=== PATIENT | female | born 1985 | race African-American/Black ===

== ENCOUNTER 2017-10-10 23:59 | Emergency (ER) | payer SELFPAY ==
[2017-10-11 00:33] LABS: ADD MAN DIFF? NO
[2017-10-11 00:34] LABS: BASO % 0 % (0-3); EOS # 0.2 x10^3/uL (0.0-0.7); EOS % 2 % (0-3); HEMATOCRIT 42.7 % (36.0-47.0); HEMOGLOBIN 14.2 g/dL (12.0-15.5); LYMPH # 1.6 x10^3/uL (1.0-4.8); LYMPH % 15 % (24-48); MEAN CORPUSCULAR HEMOGLOBIN 27 pg (25-35); MEAN CORPUSCULAR HGB CONC 33 g/dL (31-37); MEAN CORPUSCULAR VOLUME 82 fL (79-100); MONO # 0.6 x10^3/uL (0.0-1.1); MONO % 5 % (0-9); NEUT # 7.9 x10^3uL (1.8-7.7); NEUT % 77 % (31-73); PLATELET COUNT 345 x10^3/uL (140-400); RED BLOOD COUNT 5.19 x10^6/uL (3.50-5.40); RED CELL DISTRIBUTION WIDTH 12.9 % (11.5-14.5); WHITE BLOOD COUNT 10.2 x10^3/uL (4.0-11.0)
[2017-10-11] MEDS: KETOROLAC 30 MG/ML INJ. IV (00:35)
[2017-10-11] MEDS: ONDANSETRON PF 4 MG/2 ML VIAL. IV (00:35)
[2017-10-11 00:42] LABS: ANION GAP 13 (6-14); BLOOD UREA NITROGEN 16 mg/dL (7-20); BUN/CREATININE RATIO 13 (6-20); CALCIUM 9.5 mg/dL (8.5-10.1); CARBON DIOXIDE 22 mmol/L (21-32); CHLORIDE 109 mmol/L (98-107); CREATININE 1.2 mg/dL (0.6-1.0); GFR 51.4; GLUCOSE 164 mg/dL (70-99); POTASSIUM 4.3 mmol/L (3.5-5.1); SODIUM 144 mmol/L (136-145)
[2017-10-11 00:48] LABS: ALBUMIN 4.2 g/dL (3.4-5.0); ALBUMIN/GLOBULIN RATIO 1.1 (1.0-1.7); ALK PHOS 91 U/L (46-116); ALT (SGPT) 22 U/L (14-59); AST (SGOT) 10 U/L (15-37); TOTAL BILIRUBIN 0.3 mg/dL (0.2-1.0); TOTAL PROTEIN 8.1 g/dL (6.4-8.2)
[2017-10-11 01:14] LABS: URINE HCG POC HCG NEGATIVE (Negative)
[2017-10-11 01:16] LABS: BILIRUBIN,URINE NEGATIVE (NEG); CLARITY,URINE CLEAR; COLOR,URINE YELLOW; GLUCOSE,URINE NEGATIVE (NEG); NITRITE,URINE NEGATIVE (NEG); PROTEIN,URINE NEGATIVE (NEG-TRACE); UROBILINOGEN,URINE 0.2 mg/dL (0.2 mg/dL)
[2017-10-11 01:20] LABS: NEG OBC UR NEG; POS OBC UR POS; U PREG PATIENT NEGATIVE (NEG)
[2017-10-11 01:22] LABS: BACTERIA,URINE 0 /HPF (0-FEW); SQUAMOUS EPITHELIAL CELL,UR FEW /LPF
[2017-10-11 01:23] LABS: AMORPHOUS SEDIMENT,UR PRESENT /HPF
[2017-10-11] MEDS ORDERED: MORPHINE SULFATE 4 MG/ML DISP.SYRIN. (02:28)
[2017-10-11] MEDS: IV NORMAL SALINE 1000ML BAG 1,000 ML IV (02:30)
[2017-10-11] MEDS: MORPHINE SULFATE 4 MG/ML DISP.SYRIN. IV (02:33)
[2017-10-11] MEDS: TAMSULOSIN 0.4 MG CAP.ER.24H. PO (03:22)
== END 2017-10-11 03:29 | disposition home or self-care (01) ==
LOC: ER 23:59
DX: R10.12 Left upper quadrant pain (principal); R10.32 Left lower quadrant pain; R11.2 Nausea with vomiting, unspecified
CPT/HCPCS: 36415; 74176; 80053; 81001; 81025; 85025; 87086; 96361; 96374; 96375; 99285-25; J1885; J2270; J2405; J7030

== ENCOUNTER 2018-01-01 09:56 | Emergency (ER) | payer SELFPAY ==
[~2018-01-01] VITALS: Ht 172.7 cm; Wt 103.0 kg
[~2018-01-01 09:56] MED LIST: HYDR-971 PO; ONDA4TAB7 PO; TAMS0.4C97 PO
[2018-01-01] MEDS ORDERED: ALBUTEROL SULFATE 2.5 MG/3 ML NEBU. NEB ONE (10:15)
[2018-01-01] MEDS ORDERED: predniSONE 10 MG TABLET PO ONE (10:15)
--- NOTE | 2018-01-01 10:18 | PHYS DOC ---
Past Medical History Past Medical History: Asthma Past Surgical History: Other Additional Past Surgical Histo: UMBILICAL HERNIA Alcohol Use: None Drug Use: Marijuana Adult General Chief Complaint Chief Complaint: Congestion HPI HPI 32-year-old female with history of asthma and kidney stones presenting the emergency department with an upper rest for a cough over the past 2-3 days. She reports having a fever at home as well. She reports yellow and white productive cough. She denies any pain feels mildly tired. He denies abdominal pain. She denies neck stiffness confusion cyanosis. She has had mild shortness of breath. Review of systems is negative for chest pain abdominal pain neck stiffness, meningismus or nuchal rigidity. All other review of systems is negative unless otherwise noted in history of present illness. ED course: 32-year-old female presenting to the emergency department with cough and wheezing with a history of asthma. On arrival she is tachycardic Be secondary to hypovolemia, could be secondary to multiple albuterol doses use at home. Otherwise saturating well on room air. She has wheezing bilaterally with rhonchi. Abdomen is soft and nontender. No nuchal rigidity. Negative Brudzinski' s sign. Negative Kernig sign. The remainder the exam is unremarkable. Patient was given IV fluids nebulizer and oral corticosteroids. Basic blood work and chest x-ray obtained. Blood work unremarkable. Negative test. Chest x- ray shows no signs of infiltrate. On reexamination we ordered a second nebulizer because she still was having wheezing. There are examination she continues to have wheezing. I recommend the patient be admitted for nebulizers and monitoring however the patient declines and would like to sign out AMA. I informed the patient of their right to a medical screening exam and any treatment and/or stabilization that may be necessary regardless of their ability to pay. The patient appears to have intact insight, judgment, and reason. In my opinion, this patient has the capacity to make decisions. The patient presented with asthma and I am concerned that this could worsen and cause respiratory distress. My initial plan prior to the pt expressing the desire to leave was admission to the hospital for monitoring and nebulizers. I explained the risk of and disability to the patient in plain language which they were able to demonstrate in their own words verbal understanding. I discussed the limitations of the workup thus far included but were not limited to worsening condition. The pt has verbalized understanding of my concerns. I offered alternatives to the therapy including oral steroids and antibiotics with inhaler. I recommended the pt follow up with the ED tomorrow. I explained that at any time if the patient changed their mind, we are always open and would be happy to have them back. The patient refused further care and then left against medical advice. Review of Systems Review of Systems SEE ABOVE. Current Medications Current Medications Current Medications Medications (Trade) Dose Ordered Sig/Jeramie Start Time Stop Time Status Last Admin Dose Admin Albuterol Sulfate (Ventolin Neb Soln) 2.5 mg 1X ONCE 01/01/18 10:15 01/01/18 10:16 DC 01/01/18 10:25 2.5 MG Albuterol/ Ipratropium (Duoneb) 3 ml 1X ONCE 01/01/18 11:45 01/01/18 11:46 DC 01/01/18 11:40 3 ML Prednisone (Prednisone) 50 mg 1X ONCE 01/01/18 10:15 01/01/18 10:16 DC 01/01/18 10:26 50 MG Sodium Chloride 1,000 ml @ 1,000 mls/hr 1X ONCE 01/01/18 10:30 01/01/18 11:29 DC 01/01/18 10:29 1,000 MLS/HR Allergies Allergies Allergies Coded Allergies Type Severity Reaction Last Updated Verified No Known Drug Allergies 10/11/17 No Physical Exam Physical Exam SEE ABOVE Constitutional: Well developed, well nourished, no acute distress, non-toxic appearance. [] HENT: Normocephalic, atraumatic, bilateral external ears normal, oropharynx moist, no oral exudates, nose normal. [] Eyes: PERRLA, EOMI, conjunctiva normal, no discharge. [] Neck: Normal range of motion, no tenderness, supple, no stridor. [] Cardiovascular:tachy Heart rate w regular rhythm, no murmur [] Lungs & Thorax: as above Abdomen: Bowel sounds normal, soft, no tenderness, no masses, no pulsatile masses. [] Skin: Warm, dry, no erythema, no rash. [] Back: No tenderness, no CVA tenderness. [] Extremities: No tenderness, no cyanosis, no clubbing, ROM intact, no edema. [] Neurologic: Alert and oriented X 3, normal motor function, normal sensory function, no focal deficits noted. [] Psychologic: Affect normal, judgement normal, mood normal. [] Current Patient Data Vital Signs Vital Signs Date Time Temp Pulse Resp B/P (MAP) Pulse Ox O2 Delivery O2 Flow Rate FiO2 01/01/18 11:41 97 Room Air 01/01/18 10:10 99.6 132 26 177/95 (122) 99.6 Lab Values Laboratory Tests Test 01/01/18 10:15 White Blood Count 5.8 x10^3/uL (4.0-11.0) Red Blood Count 4.73 x10^6/uL (3.50-5.40) Hemoglobin 13.2 g/dL (12.0-15.5) Hematocrit 39.1 % (36.0-47.0) Mean Corpuscular Volume 83 fL (79-100) Mean Corpuscular Hemoglobin 28 pg (25-35) Mean Corpuscular Hemoglobin Concent 34 g/dL (31-37) Red Cell Distribution Width 13.7 % (11.5-14.5) Platelet Count 320 x10^3/uL (140-400) Neutrophils (%) (Auto) 48 % (31-73) Lymphocytes (%) (Auto) 28 % (24-48) Monocytes (%) (Auto) 12 % (0-9) H Eosinophils (%) (Auto) 11 % (0-3) H Basophils (%) (Auto) 1 % (0-3) Neutrophils # (Auto) 2.8 x10^3uL (1.8-7.7) Lymphocytes # (Auto) 1.7 x10^3/uL (1.0-4.8) Monocytes # (Auto) 0.7 x10^3/uL (0.0-1.1) Eosinophils # (Auto) 0.7 x10^3/uL (0.0-0.7) Basophils # (Auto) 0.0 x10^3/uL (0.0-0.2) Sodium Level 138 mmol/L (136-145) Potassium Level 4.1 mmol/L (3.5-5.1) Chloride Level 106 mmol/L (98-107) Carbon Dioxide Level 23 mmol/L (21-32) Anion Gap 9 (6-14) Blood Urea Nitrogen 6 mg/dL (7-20) L Creatinine 0.9 mg/dL (0.6-1.0) Estimated GFR (Cockcroft-Gault) 86.7 Glucose Level 101 mg/dL (70-99) H Calcium Level 9.8 mg/dL (8.5-10.1) Serum Test, Qualitative Negative (NEG) Laboratory Tests 01/01/18 10:15 Laboratory Tests 01/01/18 10:15 EKG EKG [] Radiology/Procedures Radiology/Procedures [] Course & Med Decision Making Course & Med Decision Making Pertinent Labs and Imaging studies reviewed. (See chart for details) [] Dragon Disclaimer Dragon Disclaimer This electronic medical record was generated, in whole or in part, using a voice recognition dictation system. Departure Departure Impression: Primary Impression: Acute asthma exacerbation Disposition: AGAINST MEDICAL ADVICE Condition: GUARDED Referrals: NO PCP (PCP) AMILCAR ST MD Patient Instructions: Asthma Attacks, Prevention, Asthma, Adult Additional Instructions: Thank you for allowing us to participate in your care today. Return to the emergency department you have any new or worsening symptoms, or if you are concerned for any reason. Return to emergency department if you have any new or concerning symptoms including but not limited to fever, chills, nausea, vomiting, intractable pain, any new rashes, chest pain, shortness of air , uncontrolled bleeding, difficulty breathing, and/or vision loss. Follow up with your primary care physician within 3 days. Call your Primary Doctor tomorrow and inform them of your visit today. If you do not have a primary care provider we are happy to provide you with a list of our primary care providers contact information. This condition should be evaluated by your primary care physician and any recommended consulting services for continued management within 2-3 days after discharge. If at any time, you are having difficulty getting into your primary care doctor or a specialist, return to the emergency department. Scripts Doxycycline Monohydrate (DOXYCYCLINE MONOHYDRATE) 100 Mg Capsule 1 CAP PO BID, #14 CAP Prov: JESSE ARMENDARIZ MD 01/01/18 Albuterol Sulfate (PROAIR HFA INHALER) 8.5 Gm Hfa.aer.ad 1 PUFF INH PRN Q6HRS PRN for SHORTNESS OF BREATH, #1 INHALER 0 Refills Prov: JESSE ARMENDARIZ MD 01/01/18 Prednisone (PREDNISONE) 50 Mg Tablet 1 TAB PO DAILY, #4 TAB Prov: JESSE ARMENDARIZ MD 01/01/18 JESSE ARMENDARIZ MD Jan 01, 2018 10:18
[2018-01-01] MEDS ORDERED: IV NORMAL SALINE 1000ML BAG 1,000 ML IV ONE (10:30)
[2018-01-01 10:31] LABS: BASO % 1 % (0-3); EOS # 0.7 x10^3/uL (0.0-0.7); EOS % 11 % (0-3); HEMATOCRIT 39.1 % (36.0-47.0); HEMOGLOBIN 13.2 g/dL (12.0-15.5); LYMPH # 1.7 x10^3/uL (1.0-4.8); LYMPH % 28 % (24-48); MEAN CORPUSCULAR HEMOGLOBIN 28 pg (25-35); MEAN CORPUSCULAR HGB CONC 34 g/dL (31-37); MEAN CORPUSCULAR VOLUME 83 fL (79-100); MONO # 0.7 x10^3/uL (0.0-1.1); MONO % 12 % (0-9); NEUT # 2.8 x10^3uL (1.8-7.7); NEUT % 48 % (31-73); PLATELET COUNT 320 x10^3/uL (140-400); RED BLOOD COUNT 4.73 x10^6/uL (3.50-5.40); RED CELL DISTRIBUTION WIDTH 13.7 % (11.5-14.5); WHITE BLOOD COUNT 5.8 x10^3/uL (4.0-11.0)
[2018-01-01] MEDS ORDERED: IPRATRPIUM/ALBUTEROL 0.5/2.5MG 3 ML NEBU. NEB ONE ×2 (10:45→11:45)
[2018-01-01 10:56] LABS: CALCIUM 9.8 mg/dL (8.5-10.1); CREATININE 0.9 mg/dL (0.6-1.0); GFR 86.7; POTASSIUM 4.1 mmol/L (3.5-5.1); PREG TEST PT QUAL NEGATIVE (NEG)
--- NOTE | 2018-01-01 11:19 | RAD ---
CHEST PA LATERAL History: cough x 5 days Comparison: None. Findings: The cardiomediastinal silhouette is normal. Pulmonary vasculature is normal. The lungs are clear. No pleural effusion or pneumothorax is seen. There is no acute bone abnormality. IMPRESSION: No acute cardiopulmonary process. Electronically signed by: Darien Knox MD (01/01/2018 11:15 AM) [id number]
[2018-01-01 12:00] VITALS: BP 174/79
[2018-01-01] MEDS ORDERED: DOXY100C14 PO (12:03)
[2018-01-01] MEDS ORDERED: PROAIR HFA8.5 GM INH (12:03)
[2018-01-01] MEDS ORDERED: PRED50TA PO (12:03)
== END 2018-01-01 12:12 | disposition left against medical advice (07) ==
LOC: ER 09:56
DX: J45.901 Unspecified asthma with (acute) exacerbation (principal); Z87.442 Personal history of urinary calculi
CPT/HCPCS: 36415; 71046; 80048; 84703; 85025; 94640; 99285; J7030; J7512; J7613; J7620

== ENCOUNTER 2018-07-23 10:08 | Emergency (ER) | payer SELFPAY ==
[~2018-07-23] VITALS: Ht 172.7 cm; Wt 97.1 kg
[~2018-07-23 10:08] MED LIST changes: +ALBU2.5V8 INH; +DOXY100C14 PO; +HYDR-3164 PO; -HYDR-971 PO; +PRED50TA PO
--- NOTE | 2018-07-23 10:24 | PHYS DOC ---
Past Medical History Past Medical History: Asthma, Kidney Stone Past Surgical History: Other Additional Past Surgical Histo: UMBILICAL HERNIA Alcohol Use: None Drug Use: Marijuana Adult General Chief Complaint Chief Complaint: ASTHMA HPI HPI Patient is a 33 year old female with history of asthma who presents to the ED complaining of cough, wheezing and shortness of breath that began last night. Patient states she has tried using her inhaler with no relief. Patient denies any fever. Review of Systems Review of Systems Constitutional: Denies fever or chills [] Eyes: Denies change in visual acuity, redness, or eye pain [] HENT: Denies nasal congestion or sore throat [] Respiratory:Reports cough, wheezing and shortness of breath [] Cardiovascular: No additional information not addressed in HPI [] GI: Denies abdominal pain, nausea, vomiting, bloody stools or diarrhea [] : Denies dysuria or hematuria [] Musculoskeletal: Denies back pain or joint pain [] Integument: Denies rash or skin lesions [] Neurologic: Denies headache, focal weakness or sensory changes [] All other systems were reviewed and found to be within normal limits, except as documented in this note. Current Medications Current Medications Current Medications Medications (Trade) Dose Ordered Sig/Jeramie Start Time Stop Time Status Last Admin Dose Admin Albuterol/ Ipratropium (Duoneb) 3 ml 1X ONCE 07/23/18 10:30 07/23/18 10:31 DC 07/23/18 10:30 3 ML Methylprednisolone Sodium Succinate (SOLU-Medrol 125MG VIAL) 125 mg 1X ONCE 07/23/18 10:30 07/23/18 10:31 DC 07/23/18 10:55 125 MG Ondansetron HCl (Zofran) 4 mg STK-MED ONCE 07/23/18 10:58 07/23/18 10:59 DC Allergies Allergies Allergies Coded Allergies Type Severity Reaction Last Updated Verified No Known Drug Allergies 10/11/17 No Physical Exam Physical Exam Constitutional: Well developed, well nourished, no acute distress, non-toxic appearance. [] HENT: Normocephalic, atraumatic, bilateral external ears normal, oropharynx moist, no oral exudates, nose normal. [] Eyes: PERRLA, EOMI, conjunctiva normal, no discharge. [] Neck: Normal range of motion, no tenderness, supple, no stridor. [] Cardiovascular:Heart rate regular rhythm, no murmur [] Lungs & Thorax: Patient is short of air on arrival to the ED. Wheezing noted throughout. Abdomen: Bowel sounds normal, soft, no tenderness, no masses, no pulsatile masses. [] Skin: Warm, dry, no erythema, no rash. [] Back: No tenderness, no CVA tenderness. [] Extremities: No tenderness, no cyanosis, no clubbing, ROM intact, no edema. [] Neurologic: Alert and oriented X 3, normal motor function, normal sensory function, no focal deficits noted. [] Psychologic: Affect normal, judgement normal, mood normal. [] Current Patient Data Vital Signs Vital Signs Date Time Temp Pulse Resp B/P (MAP) Pulse Ox O2 Delivery O2 Flow Rate FiO2 07/23/18 10:45 91 Room Air 07/23/18 10:29 98.1 122 22 135/78 (97) 98.1 Lab Values Laboratory Tests Test 07/23/18 10:48 POC Urine HCG, Qualitative Hcg negative (Negative) EKG EKG [] Radiology/Procedures Radiology/Procedures [] Course & Med Decision Making Course & Med Decision Making Pertinent Labs and Imaging studies reviewed. (See chart for details) This is a 33-year-old female patient presenting to the ED today with shortness of breath, cough, wheezing since last night. Patient has history of asthma. He has tried using her inhaler with no relief. DuoNeb treatment and Solu-Medrol ordered given Chest x-ray interpreted by radiologist is negative for any acute findings. 11:59 . Related patient, she states she is feeling better. Her lungs have cleared up, breathing is back to baseline. O2 sats have remained above 96%. Patient was discharged with prescription for albuterol inhaler and prednisone. Follow-up with her PCP next week. Dragon Disclaimer Dragon Disclaimer This electronic medical record was generated, in whole or in part, using a voice recognition dictation system. Departure Departure Impression: Primary Impression: Asthma exacerbation Disposition: HOME, SELF-CARE Condition: STABLE Referrals: NO PCP (PCP) follow up with your doctor next week Patient Instructions: Asthma, Adult Additional Instructions: You were evaluated for asthma exacerbation, take the prescribed medications as ordered. Follow-up with your doctor in 2 weeks. Come back to the ED at any point symptoms worsen. Scripts Albuterol Sulfate (Proair Respiclick) 90 Mcg Aer.pow.ba 1 PUFF IH PRN Q6HRS PRN for SHORTNESS OF BREATH, #1 INHALER Prov: BRIAN WALL APRN 07/23/18 Albuterol Sulfate (VENTOLIN HFA INHALER) 18 Gm Hfa.aer.ad 2 PUFF INH Q4HRS for FOR ASTHMA, #1 INHALER 0 Refills Prov: BRIAN WALL APRN 07/23/18 Prednisone (PREDNISONE) 50 Mg Tablet 1 TAB PO DAILY, #5 TAB Prov: BRIAN WALL APRN 07/23/18 Problem Qualifiers Primary Impression: Asthma exacerbation Asthma severity: mild Asthma persistence: intermittent Qualified Codes: J45.21 - Mild intermittent asthma with (acute) exacerbation BRIAN WALL APRN Jul 23, 2018 10:24
[2018-07-23] MEDS ORDERED: methylPREDNISolone SOD SUCC PF 125 MG/2 ML VIAL. IM ONE (10:30)
[2018-07-23] MEDS ORDERED: IPRATRPIUM/ALBUTEROL 0.5/2.5MG 3 ML NEBU. NEB ONE (10:30)
[2018-07-23] MEDS ORDERED: ONDANSETRON PF 4 MG/2 ML VIAL. ONE (10:58)
--- NOTE | 2018-07-23 11:31 | RAD ---
Chest, 2 views, 07/23/2018: HISTORY: Shortness of breath, asthma Comparison is made to a study from 01/01/2018. The heart size is normal. No pulmonary consolidation is seen. There is no evidence of pleural fluid. IMPRESSION: No acute cardiopulmonary abnormality is detected. Electronically signed by: Royal Donahue MD (07/23/2018 11:28 AM) [facility]
[2018-07-23] MEDS ORDERED: VENTOLIN HFA18 GM INH (12:05)
[2018-07-23] MEDS ORDERED: PRED50TA PO (12:05)
[2018-07-23 12:15] VITALS: BP 133/72
[2018-07-23] MEDS ORDERED: PROAIR RESPICL90 MCG IH (12:20)
== END 2018-07-23 12:24 | disposition home or self-care (01) ==
LOC: ER 10:08
DX: J45.21 Mild intermittent asthma with (acute) exacerbation (principal); J45.909 Unspecified asthma, uncomplicated; Z87.442 Personal history of urinary calculi
CPT/HCPCS: 71046; 81025; 94640; 96372; 99284; J2930; J7620

== ENCOUNTER 2018-09-21 11:34 | Emergency (ER) | payer SELFPAY ==
[~2018-09-21] VITALS: Ht 172.7 cm; Wt 94.3 kg
[~2018-09-21 11:34] MED LIST changes: +PROAIR RESPICL90 MCG IH; +VENTOLIN HFA18 GM INH
[2018-09-21 11:40] VITALS: BP 144/83
[2018-09-21] MEDS ORDERED: ALBUTEROL SULFATE 2.5 MG/3 ML NEBU. NEB ONE (11:45)
[2018-09-21] MEDS ORDERED: predniSONE 10 MG TABLET PO ONE (11:45)
--- NOTE | 2018-09-21 12:09 | PHYS DOC ---
Past Medical History Past Medical History: Asthma, Kidney Stone Past Surgical History: Other Additional Past Surgical Histo: UMBILICAL HERNIA Alcohol Use: None Drug Use: Marijuana Social History Narrative: pt denies 09/21/18 Adult General Chief Complaint Chief Complaint: ASTHMA HPI HPI 33-year-old female presents to ER with complaints of asthma exacerbation. Patient states she has had gradual worsening over the past 3-4 days. Patient reports she has had nonproductive cough and increased shortness of air this morning. Patient reports this feels similar to previous asthma exacerbations. She reports her son currently has croup and cold-like illness. Patient denies fever, chest pain, or productive cough. Pt denies daily smoking. Review of Systems Review of Systems Constitutional: Denies fever or chills [] Eyes: Denies change in visual acuity, redness, or eye pain [] HENT: Denies nasal congestion or sore throat [] Respiratory: Reports cough/SOA Cardiovascular: No additional information not addressed in HPI [] GI: Denies abdominal pain, nausea, vomiting, bloody stools or diarrhea [] : Denies dysuria or hematuria [] Musculoskeletal: Denies back/neck pain or joint pain [] Integument: Denies rash or skin lesions [] Neurologic: Denies headache, focal weakness or sensory changes. Denies dizziness All other systems were reviewed and found to be within normal limits, except as documented in this note. Current Medications Current Medications Current Medications Medications (Trade) Dose Ordered Sig/Jeramie Start Time Stop Time Status Last Admin Dose Admin Albuterol Sulfate (Ventolin Neb Soln) 2.5 mg 1X ONCE 09/21/18 11:45 09/21/18 11:46 DC 09/21/18 11:59 2.5 MG Albuterol/ Ipratropium (Duoneb) 3 ml 1X ONCE 09/21/18 12:30 09/21/18 12:31 DC 09/21/18 13:12 3 ML Prednisone (Prednisone) 50 mg 1X ONCE 09/21/18 11:45 09/21/18 11:46 DC 09/21/18 11:55 50 MG Allergies Allergies Allergies Coded Allergies Type Severity Reaction Last Updated Verified No Known Drug Allergies 10/11/17 No Physical Exam Physical Exam Constitutional: Well developed, well nourished, moderate distress, non-toxic appearance. [] HENT: Normocephalic, atraumatic, bilateral external ears normal, oropharynx moist, no oral exudates, nose normal. [] Eyes: Pupils equal, conjunctiva normal, no discharge. [] Neck: Normal range of motion, no tenderness, supple, no stridor/gross adenopathy Cardiovascular: Heart rate regular rhythm, no murmur [] Lungs & Thorax: Decreased air movement throughout all lung moise, expiratory wheeze right upper lobe, decreased air movement in bases. Respirations are labored/equal. Patient is able to speak in full sentences Skin: Warm, dry, no erythema, no rash. [] Back: No tenderness, no CVA tenderness. [] Extremities: No tenderness, no cyanosis, no clubbing, ROM intact, no edema. [] Neurologic: Alert and oriented X 3, normal motor function, normal sensory function, no focal deficits noted. [] Psychologic: Affect normal, judgement normal, mood normal. [] Current Patient Data Vital Signs Vital Signs Date Time Temp Pulse Resp B/P (MAP) Pulse Ox O2 Delivery O2 Flow Rate FiO2 09/21/18 13:12 Room Air 09/21/18 11:59 100 09/21/18 11:40 98.6 122 24 144/83 (103) 98.6 EKG EKG [] Radiology/Procedures Radiology/Procedures PROCEDURE: CHEST PA & LATERAL Chest, 2 views, 09/21/2018: HISTORY: Cough, shortness of breath Comparison is made to a study from 07/23/2018. The heart size is normal. The lungs are clear. There is no evidence of pleural fluid. IMPRESSION: No acute cardiopulmonary abnormality is detected. Electronically signed by: Royal Donahue MD (09/21/2018 12:31 PM) [facility] DICTATED and SIGNED BY: ROYAL DONAHUE MD DATE: 09/21/18 1231 Course & Med Decision Making Course & Med Decision Making Pertinent Labs and Imaging studies reviewed. (See chart for details) 1210: On reevaluation following DuoNeb treatment patient reports her breathing has eased some she continues to have a nonproductive cough with labored respirations. On reexam she has increased air movement throughout all lung moise does continue to have right upper lobe expiratory wheezing. Will obtain chest x-ray for further evaluation. Patient will receive second DuoNeb treatment when she returns from imaging. After 2nd Duoneb pt reports more improvement in breathing- resp. are equal/ nonlabored. On re-exam pt has increased air movement through all lung moise- wheezing in rt upper lobe has subsided. She is no distress and is requesting home d/c. Chest xray with no acute findings. Discussed plans for d/c and will provide pt with Rxs for prednisone, inhaler, and Duoneb tx for her nebulizer at home. Education provided on s&s to return to ER for- pt advised on need for f/u with her PCP for re-eval. and med refills for asthma meds. Discharge instructions were discussed. Dragon Disclaimer Dragon Disclaimer This electronic medical record was generated, in whole or in part, using a voice recognition dictation system. Departure Departure Impression: Primary Impression: Asthma exacerbation Disposition: HOME, SELF-CARE Condition: STABLE Referrals: NO PCP (PCP) Patient Instructions: Asthma, Adult, Cough, Adult Additional Instructions: Drink plenty of fluids. If symptoms persist or worsen follow-up with your primary doctor for re- evaluation and further care. Continue home nebulizer as prescribed. Scripts Ipratropium/Albuterol Sulfate (DUONEB 0.5-3(2.5) MG/3 ML) 3 Ml Ampul.neb 3 ML NEB QID PRN for COUGH, #20 EACH 0 Refills Prov: SUYAPA PEMBERTON APRN 09/21/18 Prednisone (PREDNISONE) 50 Mg Tablet 1 TAB PO DAILY, #4 TAB 0 Refills Start on 09/22/18 Prov: SUYAPA PEMBERTON APRN 09/21/18 Albuterol Sulfate (Proair Hfa) 8.5 Gm Hfa.aer.ad 1 PUFF INH PRN Q6HRS PRN for COUGH, #1 INHALER 0 Refills Prov: SUYAPA PEMBERTON APRN 09/21/18 SUYAPA PEMBERTON APRN September 21, 2018 12:09
[2018-09-21] MEDS ORDERED: IPRATRPIUM/ALBUTEROL 0.5/2.5MG 3 ML NEBU. NEB ONE (12:30)
--- NOTE | 2018-09-21 12:34 | RAD ---
Chest, 2 views, 09/21/2018: HISTORY: Cough, shortness of breath Comparison is made to a study from 07/23/2018. The heart size is normal. The lungs are clear. There is no evidence of pleural fluid. IMPRESSION: No acute cardiopulmonary abnormality is detected. Electronically signed by: Royal Donahue MD (09/21/2018 12:31 PM) [facility]
[2018-09-21] MEDS ORDERED: ALBU2.5V8 INH (12:59)
[2018-09-21] MEDS ORDERED: PRED50TA PO (13:00)
[2018-09-21] MEDS ORDERED: IPRA3AMP29 NEB (13:18)
== END 2018-09-21 13:27 | disposition home or self-care (01) ==
LOC: ER 11:34
DX: J45.901 Unspecified asthma with (acute) exacerbation (principal); Z87.442 Personal history of urinary calculi
CPT/HCPCS: 71046; 94640; 99284; J7512; J7613; J7620

== ENCOUNTER 2018-11-17 09:47 | Emergency (ER) | payer SELFPAY ==
[~2018-11-17] VITALS: Ht 172.7 cm; Wt 104.3 kg
[~2018-11-17 09:47] MED LIST changes: +IPRA3AMP29 NEB
[2018-11-17 10:45] LABS: BILIRUBIN,URINE NEGATIVE (NEG); CLARITY,URINE CLEAR; COLOR,URINE YELLOW; NITRITE,URINE NEGATIVE (NEG); PH,URINE 5.5; PROTEIN,URINE NEGATIVE (NEG-TRACE); UROBILINOGEN,URINE 0.2 mg/dL (0.2 mg/dL)
[2018-11-17] MEDS ORDERED: MORPHINE SULFATE 4 MG/ML VIAL. IV ONE (10:45)
[2018-11-17] MEDS ORDERED: KETOROLAC 15 MG/ML VIAL. IV ONE (10:45)
[2018-11-17] MEDS ORDERED: IV NORMAL SALINE 1000ML BAG 1,000 ML IV ONE (10:45)
[2018-11-17] MEDS ORDERED: ONDANSETRON PF 4 MG/2 ML VIAL. IV ONE (10:45)
[2018-11-17 10:46] LABS: SQUAMOUS EPITHELIAL CELL,UR MOD /LPF; WBC,URINE OCC /HPF (0-4)
[2018-11-17 10:47] LABS: BACTERIA,URINE 0 /HPF (0-FEW)
--- NOTE | 2018-11-17 10:52 | PHYS DOC ---
Past Medical History Past Medical History: Asthma, Kidney Stone Past Surgical History: Other Additional Past Surgical Histo: UMBILICAL HERNIA Alcohol Use: None Drug Use: None Adult General Chief Complaint Chief Complaint: ABDOMINAL PAIN HPI HPI Patient is a 33 year old female presents with left flank pain has been intermittent for one week. The patient has a history kidney stones and states that she's also been feeling associated symptoms of nausea and vomiting. Rates her pain as 9 out of 10 in severity and describes it as pressure, and stabbing. Has been taking ibuprofen at home last took ibuprofen 600 mg around midnight. Review of Systems Review of Systems Constitutional: Denies fever or chills [] Eyes: Denies change in visual acuity, redness, or eye pain [] HENT: Denies nasal congestion or sore throat [] Respiratory: Denies cough or shortness of breath [] Cardiovascular: No additional information not addressed in HPI [] GI: Reports L flank pain, nausea, vomiting Denies bloody stools or diarrhea [] : Denies dysuria or hematuria. Reports Pressure. Musculoskeletal: Report back pain (flank L) Denies joint pain [] Integument: Denies rash or skin lesions [] Neurologic: Denies headache, focal weakness or sensory changes [] Endocrine: Denies polyuria or polydipsia [] Complete systems were reviewed and found to be within normal limits, except as documented in this note. Current Medications Current Medications Current Medications Medications (Trade) Dose Ordered Sig/Jeramie Start Time Stop Time Status Last Admin Dose Admin Ketorolac Tromethamine (Toradol 15mg Vial) 15 mg 1X ONCE 11/17/18 10:45 11/17/18 10:47 DC 11/17/18 10:50 15 MG Morphine Sulfate (Morphine Sulfate) 4 mg 1X ONCE 11/17/18 10:45 11/17/18 10:47 DC 11/17/18 10:50 4 MG Ondansetron HCl (Zofran) 4 mg 1X ONCE 11/17/18 10:45 11/17/18 10:47 DC 11/17/18 10:50 4 MG Sodium Chloride 1,000 ml @ 1,000 mls/hr 1X ONCE 11/17/18 10:45 11/17/18 11:44 DC 11/17/18 10:50 1,000 MLS/HR Allergies Allergies Allergies Coded Allergies Type Severity Reaction Last Updated Verified No Known Drug Allergies 10/11/17 No Physical Exam Physical Exam Constitutional: Well developed, well nourished, no acute distress, non-toxic appearance. [] HENT: Normocephalic, atraumatic, bilateral external ears normal, oropharynx moist, no oral exudates, nose normal. [] Eyes: PERRLA, EOMI, conjunctiva normal, no discharge. [] Neck: Normal range of motion, no tenderness, supple, no stridor. [] Cardiovascular:Heart rate regular rhythm, no murmur [] Lungs & Thorax: Bilateral breath sounds clear to auscultation [] Abdomen: Bowel sounds normal, soft, L flank tenderness and left lower quadrant, no masses, no pulsatile masses. [] Skin: Warm, dry, no erythema, no rash. [] Back: L sided tenderness, has L CVA tenderness. [] Extremities: No tenderness, no cyanosis, no clubbing, ROM intact, no edema. [] Neurologic: Alert and oriented X 3, normal motor function, normal sensory function, no focal deficits noted. [] Psychologic: Affect normal, judgement normal, mood normal. [] Current Patient Data Vital Signs Vital Signs Date Time Temp Pulse Resp B/P (MAP) Pulse Ox O2 Delivery O2 Flow Rate FiO2 11/17/18 10:50 20 97 Room Air 11/17/18 10:23 99.0 96 117/75 (89) 99.0 Lab Values Laboratory Tests Test 11/17/18 10:05 11/17/18 10:07 11/17/18 10:40 Urine Collection Type Unknown Urine Color Yellow Urine Clarity Clear Urine pH 5.5 Urine Specific [place] 1.020 Urine Protein Negative mg/dL (NEG-TRACE) Urine Glucose (UA) Negative mg/dL (NEG) Urine Ketones (Stick) Negative mg/dL (NEG) Urine Blood Large (NEG) Urine Nitrite Negative (NEG) Urine Bilirubin Negative (NEG) Urine Urobilinogen Dipstick 0.2 mg/dL (0.2 mg/dL) Urine Leukocyte Esterase Negative (NEG) Urine RBC 1-2 /HPF (0-2) Urine WBC Occ /HPF (0-4) Urine Squamous Epithelial Cells Mod /LPF Urine Bacteria 0 /HPF (0-FEW) Urine Mucus Mod /LPF POC Urine HCG, Qualitative Hcg negative (Negative) White Blood Count 9.2 x10^3/uL (4.0-11.0) Red Blood Count 4.68 x10^6/uL (3.50-5.40) Hemoglobin 13.1 g/dL (12.0-15.5) Hematocrit 38.5 % (36.0-47.0) Mean Corpuscular Volume 82 fL (79-100) Mean Corpuscular Hemoglobin 28 pg (25-35) Mean Corpuscular Hemoglobin Concent 34 g/dL (31-37) Red Cell Distribution Width 12.9 % (11.5-14.5) Platelet Count 313 x10^3/uL (140-400) Neutrophils (%) (Auto) 54 % (31-73) Lymphocytes (%) (Auto) 33 % (24-48) Monocytes (%) (Auto) 6 % (0-9) Eosinophils (%) (Auto) 6 % (0-3) H Basophils (%) (Auto) 1 % (0-3) Neutrophils # (Auto) 5.0 x10^3uL (1.8-7.7) Lymphocytes # (Auto) 3.0 x10^3/uL (1.0-4.8) Monocytes # (Auto) 0.6 x10^3/uL (0.0-1.1) Eosinophils # (Auto) 0.6 x10^3/uL (0.0-0.7) Basophils # (Auto) 0.1 x10^3/uL (0.0-0.2) Sodium Level 138 mmol/L (136-145) Potassium Level 4.5 mmol/L (3.5-5.1) Chloride Level 105 mmol/L (98-107) Carbon Dioxide Level 23 mmol/L (21-32) Anion Gap 10 (6-14) Blood Urea Nitrogen 10 mg/dL (7-20) Creatinine 1.0 mg/dL (0.6-1.0) Estimated GFR (Cockcroft-Gault) 76.3 BUN/Creatinine Ratio 10 (6-20) Glucose Level 141 mg/dL (70-99) H Calcium Level 9.6 mg/dL (8.5-10.1) Total Bilirubin 0.2 mg/dL (0.2-1.0) Aspartate Amino Transferase (AST) 21 U/L (15-37) Alanine Aminotransferase (ALT) 23 U/L (14-59) Alkaline Phosphatase 81 U/L (46-116) Total Protein 7.7 g/dL (6.4-8.2) Albumin 3.7 g/dL (3.4-5.0) Albumin/Globulin Ratio 0.9 (1.0-1.7) L Lipase 151 U/L (73-393) Laboratory Tests 11/17/18 10:40 Laboratory Tests 11/17/18 10:40 EKG EKG [] Radiology/Procedures Radiology/Procedures []PATIENT: ARTUR PRESTON MACCOUNT: [id number]#: [id number] : 1985 LOCATION: ER AGE: 33 SEX: F EXAM STATUS: REG ER ORD. PHYSICIAN: AMILCAR MORALES APRN REASON: flank pain PROCEDURE: CT ABDOMEN PELVIS WO CONTRAST Examination: CT ABDOMEN PELVIS WO CONTRAST History: Flank pain Comparison/Correlation: 10/11/2017 CT abdomen and pelvis without contrast Findings: Axial images of the abdomen and pelvis were obtained without contrast. Sagittal and coronal reformatted images were provided. Visualized lung bases are clear. Gallbladder fossa is unremarkable. Unenhanced liver, spleen, pancreas, and adrenal glands are unremarkable. There are no radiopaque collecting system calculi or evidence of obstruction. Gallbladder fossa is unremarkable. Retained contrast is noted within the appendix. Nonenlarged lymph nodes within the right mid abdomen mesentery noted. No extraluminal gas. No bowel obstruction. Fluid is noted to mildly distend the duodenum. Urinary bladder is unremarkable. Fibroid involvement of the uterus suspected. Left inguinal hernia contains omental fat. Adnexal follicles are present bilaterally. Bony structures are unremarkable. Impression: Nonenlarged right lower quadrant lymph nodes likely representing mesenteric adenitis. These lymph nodes are increased in size compared to the previous exam. Appendix is unremarkable. No radiopaque collecting system calculi or evidence of collecting system obstruction. PQRS Compliance Statement: One or more of the following individualized dose reduction techniques were utilized for this examination: 1. Automated exposure control 2. Adjustment of the mA and/or kV according to patient size 3. Use of iterative reconstruction technique Electronically signed by: Archie Robles MD (11/17/2018 11:18 AM) [facility] DICTATED and SIGNED BY: ARCHIE ROBLES MD Course & Med Decision Making Course & Med Decision Making Pertinent Labs and Imaging studies reviewed. (See chart for details) Clinically appears to have kidney stones. Will give Toradol, Morphine, Fluids, Labs, Urine, CT abd pelvis wo contrast. Patient is agreeable. CT abd pelvis is unremarkable. However clinically patient is suspicious for kidney stone, Urine shows large blood, has history of stones and states the pain feels like it did in the past. Toradol and Morphine helped pain. Will have strain her urine, take Flomax and if it does not improve come back for further evaluation. Patient is agreeable to plan. Dragon Disclaimer Dragon Disclaimer This electronic medical record was generated, in whole or in part, using a voice recognition dictation system. Departure Departure Impression: Primary Impression: Abdominal pain Disposition: HOME, SELF-CARE Condition: STABLE Referrals: NO PCP (PCP) Patient Instructions: Diet for Kidney Stones Additional Instructions: Thank you for visiting [facility]. We appreciate you trusting us with your care. If any additional problems come up don't hesitate to return to visit us. Please follow up with your primary care provider so they can plan additional care if needed and know about the problem that you had. If symptoms worsen come back to the Emergency Department. Any concerning symptoms that start such as chest pain, shortness of Air, weakness or numbness on one side of the body, running high fevers or any other concerning symptoms return to the ER. Please fill your medications at any pharmacy and follow the prescription instructions. Scripts Ondansetron (ONDANSETRON ODT) 4 Mg Tab.rapdis 1 TAB PO PRN Q6-8HRS PRN for NAUSEA, #16 TAB Prov: AMILCAR MORALES APRN 11/17/18 Tamsulosin Hcl (FLOMAX) 0.4 Mg Cap.er.24h 1 CAP PO DAILY, #10 CAP 11 Refills Prov: AMILCAR MORALES APRN 11/17/18 Hydrocodone/Apap 5-325 (NORCO 5-325 TABLET) 1 Each Tablet 1 TAB PO PRN Q6HRS PRN for PAIN for 5 Days, #12 TAB 0 Refills Prov: AMILCAR MORALES APRN 11/17/18 Problem Qualifiers Primary Impression: Abdominal pain Abdominal location: unspecified location Qualified Codes: R10.9 - Unspecified abdominal pain AMILCAR MORALES APRN Nov 17, 2018 10:52
[2018-11-17 11:03] LABS: CALCIUM 9.6 mg/dL (8.5-10.1); GFR 76.3; POTASSIUM 4.5 mmol/L (3.5-5.1)
[2018-11-17 11:09] LABS: ALBUMIN 3.7 g/dL (3.4-5.0); ALBUMIN/GLOBULIN RATIO 0.9 (1.0-1.7); TOTAL BILIRUBIN 0.2 mg/dL (0.2-1.0); TOTAL PROTEIN 7.7 g/dL (6.4-8.2)
[2018-11-17 11:14] LABS: BASO # 0.1 x10^3/uL (0.0-0.2); BASO % 1 % (0-3); EOS # 0.6 x10^3/uL (0.0-0.7); EOS % 6 % (0-3); HEMATOCRIT 38.5 % (36.0-47.0); HEMOGLOBIN 13.1 g/dL (12.0-15.5); LYMPH % 33 % (24-48); MEAN CORPUSCULAR HEMOGLOBIN 28 pg (25-35); MEAN CORPUSCULAR HGB CONC 34 g/dL (31-37); MEAN CORPUSCULAR VOLUME 82 fL (79-100); MONO # 0.6 x10^3/uL (0.0-1.1); MONO % 6 % (0-9); NEUT % 54 % (31-73); PLATELET COUNT 313 x10^3/uL (140-400); RED BLOOD COUNT 4.68 x10^6/uL (3.50-5.40); RED CELL DISTRIBUTION WIDTH 12.9 % (11.5-14.5); WHITE BLOOD COUNT 9.2 x10^3/uL (4.0-11.0)
--- NOTE | 2018-11-17 11:21 | RAD ---
Examination: CT ABDOMEN PELVIS WO CONTRAST History: Flank pain Comparison/Correlation: 10/11/2017 CT abdomen and pelvis without contrast Findings: Axial images of the abdomen and pelvis were obtained without contrast. Sagittal and coronal reformatted images were provided. Visualized lung bases are clear. Gallbladder fossa is unremarkable. Unenhanced liver, spleen, pancreas, and adrenal glands are unremarkable. There are no radiopaque collecting system calculi or evidence of obstruction. Gallbladder fossa is unremarkable. Retained contrast is noted within the appendix. Nonenlarged lymph nodes within the right mid abdomen mesentery noted. No extraluminal gas. No bowel obstruction. Fluid is noted to mildly distend the duodenum. Urinary bladder is unremarkable. Fibroid involvement of the uterus suspected. Left inguinal hernia contains omental fat. Adnexal follicles are present bilaterally. Bony structures are unremarkable. Impression: Nonenlarged right lower quadrant lymph nodes likely representing mesenteric adenitis. These lymph nodes are increased in size compared to the previous exam. Appendix is unremarkable. No radiopaque collecting system calculi or evidence of collecting system obstruction. PQRS Compliance Statement: One or more of the following individualized dose reduction techniques were utilized for this examination: 1. Automated exposure control 2. Adjustment of the mA and/or kV according to patient size 3. Use of iterative reconstruction technique Electronically signed by: Archie Wolf MD (11/17/2018 11:18 AM) [facility]
[2018-11-17] MEDS ORDERED: TAMS0.4C97 PO (12:39)
[2018-11-17] MEDS ORDERED: ONDA4TAB12 PO (12:39)
[2018-11-17] MEDS ORDERED: HYDR-3164 PO (12:39)
[2018-11-17 13:05] VITALS: BP 111/64
== END 2018-11-17 13:08 | disposition home or self-care (01) ==
LOC: ER 09:47
DX: R10.32 Left lower quadrant pain (principal); R11.2 Nausea with vomiting, unspecified; J45.909 Unspecified asthma, uncomplicated; Z87.442 Personal history of urinary calculi; Z98.890 Other specified postprocedural states
CPT/HCPCS: 36415; 74176; 80053; 81001; 81025; 83690; 85025; 96361; 96374; 96375; 99285; J1885; J2270; J2405; J7030

== ENCOUNTER 2018-12-17 15:28 | Emergency (ER) | payer SELFPAY ==
[~2018-12-17] VITALS: Ht 172.7 cm; Wt 99.8 kg
[~2018-12-17 15:28] MED LIST changes: +ONDA4TAB12 PO
[2018-12-17] MEDS ORDERED: CETIRIZINE HCL 10 MG TABLET. PO STA (15:49)
--- NOTE | 2018-12-17 15:52 | PHYS DOC ---
Past Medical History Past Medical History: Asthma, Kidney Stone Past Surgical History: Other Additional Past Surgical Histo: UMBILICAL HERNIA Alcohol Use: None Drug Use: None Adult General Chief Complaint Chief Complaint: SHORTNESS OF BREATH HPI HPI Patient is a 33 year old female with history of asthma and smoking who presents to the ED today complaining of shortness of breath and a productive cough for 4 days. She is also complaining of intermittent episodes of subjective fevers. She states she has tried breathing treatments with no relief. Review of Systems Review of Systems Constitutional: Denies fever or chills [] Eyes: Denies change in visual acuity, redness, or eye pain [] HENT: Denies nasal congestion or sore throat [] Respiratory: Reports cough and shortness of breath [] Cardiovascular: No additional information not addressed in HPI [] GI: Denies abdominal pain, nausea, vomiting, bloody stools or diarrhea [] : Denies dysuria or hematuria [] Musculoskeletal: Denies back pain or joint pain [] Integument: Denies rash or skin lesions [] Neurologic: Denies headache, focal weakness or sensory changes [] All other systems were reviewed and found to be within normal limits, except as documented in this note. Current Medications Current Medications Current Medications Medications (Trade) Dose Ordered Sig/Jeramie Start Time Stop Time Status Last Admin Dose Admin Albuterol/ Ipratropium (Duoneb) 3 ml 1X ONCE 12/17/18 16:00 12/17/18 16:01 DC 12/17/18 16:13 3 ML Benzonatate (Tessalon Perle) 100 mg 1X ONCE 12/17/18 16:00 12/17/18 16:01 DC 12/17/18 16:00 100 MG Cetirizine HCl (ZyrTEC) 10 mg 1X STAT 12/17/18 15:49 12/17/18 15:53 DC 12/17/18 16:01 10 MG Prednisone (Prednisone) 60 mg 1X ONCE 12/17/18 16:00 12/17/18 16:01 DC 12/17/18 16:01 60 MG Allergies Allergies Allergies Coded Allergies Type Severity Reaction Last Updated Verified No Known Drug Allergies 10/11/17 No Physical Exam Physical Exam Constitutional: Well developed, well nourished, no acute distress, non-toxic appearance. [] HENT: Normocephalic, atraumatic, bilateral external ears normal, oropharynx moist, no oral exudates, nose normal. [] Eyes: PERRLA, EOMI, conjunctiva normal, no discharge. [] Neck: Normal range of motion, no tenderness, supple, no stridor. [] Cardiovascular:Heart rate regular rhythm, no murmur [] Lungs & Thorax: Patient is short of breath on arrival to the ED. Diffuse wheezing. Abdomen: Bowel sounds normal, soft, no tenderness, no masses, no pulsatile masses. [] Skin: Warm, dry, no erythema, no rash. [] Back: No tenderness, no CVA tenderness. [] Extremities: No tenderness, no cyanosis, no clubbing, ROM intact, no edema. [] Neurologic: Alert and oriented X 3, normal motor function, normal sensory function, no focal deficits noted. [] Psychologic: Affect normal, judgement normal, mood normal. [] Current Patient Data Vital Signs Vital Signs Date Time Temp Pulse Resp B/P (MAP) Pulse Ox O2 Delivery O2 Flow Rate FiO2 12/17/18 16:13 95 Room Air 12/17/18 15:44 98.8 113 14 129/90 (103) 98.8 EKG EKG [] Radiology/Procedures Radiology/Procedures []PROCEDURE: CHEST PA & LATERAL Exam: Chest 2 views INDICATION: Cough TECHNIQUE: Frontal and lateral views of the chest Comparisons: 09/21/2018 FINDINGS: The cardiomediastinal silhouette and pulmonary vessels are within normal limits. The lung and pleural spaces are clear. IMPRESSION: No acute cardiopulmonary process. Electronically signed by: Megan Montero MD (12/17/2018 4:20 PM) [facility] DICTATED and SIGNED BY: MEGAN MONTERO MD DATE: 12/17/18 1620 Course & Med Decision Making Course & Med Decision Making Pertinent Labs and Imaging studies reviewed. (See chart for details) This is a 33-year-old female patient with history of asthma presenting today with cough and shortness of breath for 4 days. Patient is wheezing on arrival to the ED. Chest x-ray interpreted by radiologist is negative for any acute findings. Patient was given a DuoNeb treatment, prednisone, Zyrtec and Tessalon Perles. Lungs have cleared up. Patient is in no distress. Was discharged to home. Follow-up with PCP in one week. Dragon Disclaimer Dragon Disclaimer This electronic medical record was generated, in whole or in part, using a voice recognition dictation system. Departure Departure Impression: Primary Impression: Asthma exacerbation Disposition: 01 HOME, SELF-CARE Condition: STABLE Referrals: NO PCP (PCP) Follow-up with your doctor in 1-2 weeks Patient Instructions: Asthma, Adult, [id number] Additional Instructions: You were evaluated in the emergency room for asthma exacerbation. Continue breathing treatments at home. Take the prescribed prednisone as ordered. Continue using allergy medicines as discussed. Follow-up with your doctor in one week Scripts Albuterol Sulfate (Proventil Hfa) 6.7 Gm Hfa.aer.ad 1 PUFF INH PRN Q6HRS PRN for SHORTNESS OF BREATH, #1 INHALER Prov: BRIAN WALL APRN 12/17/18 Prednisone (PREDNISONE) 50 Mg Tablet 1 TAB PO DAILY, #5 TAB Prov: BRIAN WALL APRN 12/17/18 Problem Qualifiers Primary Impression: Asthma exacerbation Asthma severity: mild Asthma persistence: intermittent Qualified Codes: J45.21 - Mild intermittent asthma with (acute) exacerbation BRIAN WALL APRN Dec 17, 2018 15:52
[2018-12-17] MEDS ORDERED: IPRATRPIUM/ALBUTEROL 0.5/2.5MG 3 ML NEBU. NEB ONE (16:00)
[2018-12-17] MEDS ORDERED: predniSONE 20 MG TABLET PO ONE (16:00)
[2018-12-17] MEDS ORDERED: BENZONATATE 100 MG CAPSULE. PO ONE (16:00)
--- NOTE | 2018-12-17 16:23 | RAD ---
Exam: Chest 2 views INDICATION: Cough TECHNIQUE: Frontal and lateral views of the chest Comparisons: 09/21/2018 FINDINGS: The cardiomediastinal silhouette and pulmonary vessels are within normal limits. The lung and pleural spaces are clear. IMPRESSION: No acute cardiopulmonary process. Electronically signed by: Gee Bailey MD (12/17/2018 4:20 PM) [facility]
[2018-12-17] MEDS ORDERED: PRED50TA PO (17:04)
[2018-12-17] MEDS ORDERED: PROVENTIL HFA6.7 G2 INH (17:04)
[2018-12-17 17:37] VITALS: BP 131/79
== END 2018-12-17 17:39 | disposition home or self-care (01) ==
LOC: ER 15:28
DX: J45.21 Mild intermittent asthma with (acute) exacerbation (principal)
CPT/HCPCS: 71046; 94640; 99284; J7512; J7620

== ENCOUNTER 2019-03-07 21:50 | Emergency (ER) | payer SELFPAY ==
[~2019-03-07] VITALS: Ht 167.6 cm; Wt 99.8 kg
[~2019-03-07 21:50] MED LIST changes: +PROVENTIL HFA6.7 G2 INH
[2019-03-07 22:08] VITALS: BP 127/79
[2019-03-07] MEDS ORDERED: DEXAMETHASONE SOD PHOS 20 MG/5 ML VIAL. PO ONE (23:00)
[2019-03-07] MEDS ORDERED: ALBUTEROL SULFATE 2.5 MG/3 ML NEBU. NEB ONE (23:00)
[2019-03-07] MEDS ORDERED: PRED50TA PO (23:42)
[2019-03-07] MEDS ORDERED: AZIT250T6 PO (23:42)
--- NOTE | 2019-03-07 23:44 | PHYS DOC ---
Past Medical History Past Medical History: Asthma, Kidney Stone Past Surgical History: Other Additional Past Surgical Histo: UMBILICAL HERNIA Alcohol Use: None Drug Use: None Adult General Chief Complaint Chief Complaint: FEVER HPI HPI Patient is a 33 year old AA female, accompanied to the emergency department with her children, who presents to the emergency department with complaints of a nonproductive cough, intermittent fever, nasal congestion, chest congestion, and wheezing for the last 4 days. Patient states that her children have had a similar illness for the last week to 2 weeks. She denies any abdominal pain, nausea, vomiting, diarrhea, sore throat, ear pain, dizziness, or headache. Patient states that she has asthma and seasonal allergies that she has been taking her medications for as prescribed. SHe denies any pain at this time. Review of Systems Review of Systems Constitutional: reports fever Eyes: Denies change in visual acuity, redness, or eye pain [] HENT: see HPI Respiratory: See HPI Cardiovascular: No additional information not addressed in HPI [] GI: Denies abdominal pain, nausea, vomiting, or diarrhea [] : Denies dysuria or hematuria [] Musculoskeletal: Denies back pain or joint pain [] Integument: Denies rash or skin lesions [] Neurologic: Denies headache All other systems were reviewed and found to be within normal limits, except as documented in this note. Current Medications Current Medications Current Medications Medications (Trade) Dose Ordered Sig/Jeramie Start Time Stop Time Status Last Admin Dose Admin Albuterol Sulfate (Ventolin Neb Soln) 2.5 mg 1X ONCE 03/07/19 23:00 03/07/19 23:01 DC 03/07/19 23:09 2.5 MG Dexamethasone Sodium Phosphate (Decadron) 10 mg 1X ONCE 03/07/19 23:00 03/07/19 23:01 DC 03/07/19 23:09 10 MG Allergies Allergies Allergies Coded Allergies Type Severity Reaction Last Updated Verified No Known Drug Allergies 10/11/17 No Physical Exam Physical Exam Constitutional: Well developed, well nourished, no acute distress, non-toxic appearance, obese. [] HENT: Normocephalic, atraumatic, bilateral external ears normal, bilateral TMs liam, cobblestone appearance of posterior pharynx, oropharynx moist, no oral exudates, nose congested Eyes: PERRLA, EOMI, conjunctiva normal, no discharge. [] Neck: Normal range of motion, no tenderness, supple, no stridor. [] Cardiovascular:Heart rate regular rhythm, no murmur [] Lungs & Thorax: Bilateral breath sounds diminished with expiratory wheezes throughout, no retractions Skin: Warm, dry, no erythema, no rash. [] Extremities: No cyanosis, ROM intact, no edema. [] Neurologic: Alert and oriented X 3, no focal deficits noted. [] Psychologic: Affect normal, judgement normal, mood normal. [] Current Patient Data Vital Signs Vital Signs Date Time Temp Pulse Resp B/P (MAP) Pulse Ox O2 Delivery O2 Flow Rate FiO2 03/07/19 23:10 97 Room Air 03/07/19 22:08 98.7 94 21 127/79 (95) 98.7 EKG EKG [] Radiology/Procedures Radiology/Procedures [] Course & Med Decision Making Course & Med Decision Making Pertinent Labs and Imaging studies reviewed. (See chart for details) dx: acute asthma exacerbation, bronchitis Fill prescription(s) and use as directed. Recommend use of a Cool mist humidifier in room at bedtime. Alternate Tylenol or ibuprofen as needed for pain/fever. Increase clear fluids. Avoid airway triggers such as smoke, fragrance, dust, and pollen. Follow-up with your doctor in 1-2 days, return to the ER if symptoms worsen. patient verbalized an understanding of home care, medications, follow-up, and return to ED instructions and was in agreement with the plan of care. Dragon Disclaimer Dragon Disclaimer This electronic medical record was generated, in whole or in part, using a voice recognition dictation system. Departure Departure Impression: Primary Impression: Asthma exacerbation Additional Impression: Bronchitis Disposition: 01 HOME, SELF-CARE Condition: STABLE Referrals: NO PCP (PCP) Patient Instructions: Acute Bronchitis, [id number], Asthma, Adult, [id number] Additional Instructions: Fill prescription(s) and use as directed. Recommend use of a Cool mist humidifier in room at bedtime. Alternate Tylenol or ibuprofen as needed for pain/fever. Increase clear fluids. Avoid airway triggers such as smoke, fragrance, dust, and pollen. May take [id number] cough suppressants as needed. Follow-up with your primary care doctor if symptoms persist, return to the ER if symptoms worsen. Scripts Azithromycin (AZITHROMYCIN TABLET) 250 Mg Tablet 1 PKG PO UD for 5 Days, #6 TAB 0 Refills 2 the first day followed by 1 for days 2-5 Prov: ANDRES OCAMPO APRN 03/07/19 Prednisone (PREDNISONE) 50 Mg Tablet 1 TAB PO DAILY for 5 Days, #5 TAB 0 Refills Prov: ANDRES OCAMPO APRN 03/07/19 Problem Qualifiers Primary Impression: Asthma exacerbation Asthma severity: mild Asthma persistence: intermittent Qualified Codes: J45.21 - Mild intermittent asthma with (acute) exacerbation ANDRES OCAMPO APRN Mar 07, 2019 23:44
== END 2019-03-07 23:46 | disposition home or self-care (01) ==
LOC: ER 21:50
DX: J45.21 Mild intermittent asthma with (acute) exacerbation (principal)
CPT/HCPCS: 94640; 99283; J1100; J7613

== ENCOUNTER 2019-07-20 04:30 | Emergency (ER) | payer SELFPAY ==
[~2019-07-20] VITALS: Ht 172.7 cm; Wt 105.4 kg
[~2019-07-20 04:30] MED LIST changes: +AZIT250T6 PO
[2019-07-20 04:34] VITALS: BP 139/97
[2019-07-20] MEDS ORDERED: predniSONE 20 MG TABLET PO ONE (05:00)
[2019-07-20] MEDS ORDERED: IPRATRPIUM/ALBUTEROL 0.5/2.5MG 3 ML NEBU. NEB ONE (05:00)
[2019-07-20] MEDS ORDERED: ALBU2.5V5 NEB (05:05)
[2019-07-20] MEDS ORDERED: PRED50TA PO (05:05)
[2019-07-20] MEDS ORDERED: ALBU2.5V8 INH (05:05)
--- NOTE | 2019-07-20 05:05 | PHYS DOC ---
Past Medical History Past Medical History: Asthma, Kidney Stone Past Surgical History: Other Additional Past Surgical Histo: UMBILICAL HERNIA Smoking Status: Former Smoker Alcohol Use: None Drug Use: None Adult General Chief Complaint Chief Complaint: COUGH HPI HPI 34-year-old female with history of asthma presents to the emergency Department complaints of cough, wheeze. Patient describes intermittent fever at times. She states despite medication use she's had continued wheezing and shortness of breath. Patient denies any chest pain, nausea, vomiting, headache or visual change. She states her children have been sick as well. Nothing makes her symptoms worse, nothing makes her symptoms better. All other ROS negative unless documented in HPI Review of Systems Review of Systems See Above Current Medications Current Medications Current Medications Medications (Trade) Dose Ordered Sig/Jeramie Start Time Stop Time Status Last Admin Dose Admin Albuterol/ Ipratropium (Duoneb) 3 ml 1X ONCE 07/20/19 05:00 07/20/19 05:01 Prednisone (Prednisone) 60 mg 1X ONCE 07/20/19 05:00 07/20/19 05:01 Allergies Allergies Allergies Coded Allergies Type Severity Reaction Last Updated Verified No Known Drug Allergies 10/11/17 No Physical Exam Physical Exam See Above Constitutional: Well developed, well nourished, no acute distress, non-toxic appearance. [] HENT: Normocephalic, atraumatic, bilateral external ears normal, oropharynx moist, no oral exudates, nose normal. [] Eyes: PERRLA, EOMI, conjunctiva normal, no discharge. [] Cardiovascular:Heart rate regular rhythm, no murmur [] Lungs & Thorax: bilateral wheeze, exp and insp (throughout) Abdomen: Bowel sounds normal, soft, no tenderness, no masses, no pulsatile masses. [] Skin: Warm, dry, no erythema, no rash. [] Back: No tenderness, no CVA tenderness. [] Extremities: No tenderness, no edema. [] Neurologic: Alert and oriented X 3, no focal deficits noted. [] Psychologic: Affect normal, judgement normal, mood normal. [] Current Patient Data Vital Signs Vital Signs Date Time Temp Pulse Resp B/P (MAP) Pulse Ox O2 Delivery O2 Flow Rate FiO2 07/20/19 04:34 97.9 102 20 139/97 (111) 99 Room Air 97.9 EKG EKG [] Radiology/Procedures Radiology/Procedures [] Course & Med Decision Making Course & Med Decision Making Pertinent Labs and Imaging studies reviewed. (See chart for details) []34-year-old female with history of asthma presents to the emergency Department complaints of cough, wheeze. Patient describes intermittent fever at times. She states despite medication use she's had continued wheezing and shortness of breath. Patient denies any chest pain, nausea, vomiting, headache or visual change. She states her children have been sick as well. Nothing makes her symptoms worse, nothing makes her symptoms better. Dragon Disclaimer Dragon Disclaimer This electronic medical record was generated, in whole or in part, using a voice recognition dictation system. Departure Departure Impression: Primary Impression: Asthma exacerbation Disposition: HOME, SELF-CARE Condition: IMPROVED Referrals: NO PCP (PCP) Patient Instructions: Asthma, Adult, [id number] Additional Instructions: Recommend follow up with PCP Steroids x 3 days Albuterol neb as provided per RX Return to the ER with worsening symptoms, altered mental status, fever not relieved with tylenol/motrin Encourage fluids as able Scripts Albuterol Sulfate (PROAIR HFA INHALER) 8.5 Gm Hfa.aer.ad 2 PUFF INH PRN Q6HRS PRN for SHORTNESS OF BREATH, #1 INHALER 0 Refills Prov: MERRICK SHERWOOD MD 07/20/19 Prednisone (PREDNISONE) 50 Mg Tablet 1 TAB PO DAILY, #3 TAB Prov: MERRICK SHERWOOD MD 07/20/19 Albuterol Sulfate (ALBUTEROL SULFATE NEB SOLN) 2.5 Mg/3 Ml Vial.neb 1 VIAL NEB Q6HRS PRN for SHORTNESS OF BREATH, #25 VIAL Prov: MERRICK SHERWOOD MD 07/20/19 Problem Qualifiers Primary Impression: Asthma exacerbation Asthma severity: mild Asthma persistence: unspecified Qualified Codes: J45.901 - Unspecified asthma with (acute) exacerbation MERRICK SHERWOOD MD Jul 20, 2019 05:05
== END 2019-07-20 05:34 | disposition home or self-care (01) ==
LOC: ER 04:30
DX: J45.901 Unspecified asthma with (acute) exacerbation (principal); R05 Cough; R50.9 Fever, unspecified; R06.02 Shortness of breath; Z87.442 Personal history of urinary calculi; Z87.891 Personal history of nicotine dependence; Z98.890 Other specified postprocedural states
CPT/HCPCS: 94640; 99283; J7512

== ENCOUNTER 2019-12-24 10:30 | Emergency (ER) | payer SELFPAY ==
[~2019-12-24] VITALS: Ht 172.7 cm; Wt 105.0 kg
[~2019-12-24 10:30] MED LIST changes: +ALBU2.5V5 NEB
[2019-12-24 10:35] VITALS: BP 155/101
[2019-12-24] MEDS ORDERED: AMOX875T PO (11:36)
[2019-12-24] MEDS ORDERED: OFLO5DRO7 RIGHT EAR (11:36)
--- NOTE | 2019-12-24 11:36 | PHYS DOC ---
Past Medical History Past Medical History: Asthma, Kidney Stone Past Surgical History: Other Additional Past Surgical Histo: UMBILICAL HERNIA Smoking Status: Current Some Day Smoker Alcohol Use: Occasionally Drug Use: None General Adult EDM: Chief Complaint: EARACHE/EAR PAIN HPI: HPI: Patient is a 34 year old female with history of asthma who presents to the ED today complaining of mild intermittent right ear pain with swelling and no drainage, symptoms have been going on for 3 weeks. Patient reports using [id number] remedies with no relief. She reports decreased hearing to the right ear. Review of Systems: Review of Systems: Constitutional: Denies fever or chills. [] Eyes: Denies change in visual acuity. [] HENT: Reports right ear pain, swelling, decreased hearing. Denies nasal congestion or sore throat. [] Respiratory: Denies cough or shortness of breath. [] Cardiovascular: Denies chest pain or edema. [] Musculoskeletal: Denies back pain or joint pain. [] Integument: Denies rash. [] Neurologic: Denies headache, focal weakness or sensory changes. [] Psychiatric: Denies depression or anxiety. [] Heart Score: Risk Factors: Risk Factors: DM, Current or recent (<one month) smoker, HTN, HLP, family history of CAD, obesity. Risk Scores: Score 0 - 3: 2.5% MACE over next 6 weeks - Discharge Home Score 4 - 6: 20.3% MACE over next 6 weeks - Admit for Clinical Observation Score 7 - 10: 72.7% MACE over next 6 weeks - Early Invasive Strategies Allergies: Allergies: Allergies Coded Allergies Type Severity Reaction Last Updated Verified No Known Drug Allergies 10/11/17 No Physical Exam: PE: Constitutional: Well developed, well nourished, no acute distress, non-toxic appearance. [] HENT: Normocephalic, atraumatic, bilateral external ears normal, oropharynx moist, no oral exudates, nose normal. [] Right ear canal with no obvious swelling, there is yellow exudate in the right ear canal, the TM is visualized, it is erythematous with a small amount of fluid as well. Neck: Normal range of motion, no tenderness, supple, no stridor. [] Cardiovascular:Heart rate regular rhythm, no murmur [] Lungs & Thorax: Bilateral breath sounds clear to auscultation [] [] Skin: Warm, dry, no erythema, no rash. [] Back: No tenderness, no CVA tenderness. [] Extremities: No tenderness, no cyanosis, no clubbing, ROM intact, no edema. [] Neurologic: Alert and oriented X 3, normal motor function, normal sensory function, no focal deficits noted. [] Psychologic: Affect normal, judgement normal, mood normal. [] Current Patient Data: Vital Signs: Vital Signs Date Time Temp Pulse Resp B/P (MAP) Pulse Ox O2 Delivery O2 Flow Rate FiO2 12/24/19 10:35 98.5 118 16 155/101 (119) 98 98.5 EKG: EKG: [] Radiology/Procedures: Radiology/Procedures: [] Course & Med Decision Making: Course & Med Decision Making Pertinent Labs and Imaging studies reviewed. (See chart for details) This is a 34-year-old. Patient with otitis media and externa. Discharged with amoxicillin and tobramycin. Provided ENT for follow-up in 2 to 4 weeks. Her blood pressure was in the 150s over low 100s. Patient denies any history of hypertension, does not have any chest pain or shortness of breath. Recommended following up with her PCP for blood pressure monitoring and management. Dragon Disclaimer: [employer] Disclaimer: This electronic medical record was generated, in whole or in part, using a voice recognition dictation system. Departure Departure Impression: Primary Impression: Otitis media Qualified Codes: H65.191 - Other acute nonsuppurative otitis media, right ear Additional Impression: Otitis externa Qualified Codes: H60.391 - Other infective otitis externa, right ear Disposition: 01 HOME, SELF-CARE Condition: STABLE Referrals: NO PCP (PCP) DENISE CLIFTON MD Follow-up in 2 to 4 weeks Patient Instructions: Otitis Externa, Otitis Media, Adult Additional Instructions: You have the infection. Use the prescribed antibiotics as ordered. Please follow-up with the provided ENT in 2 weeks. Scripts Ofloxacin (OFLOXACIN) 5 Ml Drops 5 DROP RIGHT EAR BID, #5 ML 0 Refills use for 7 days Prov: KAITLYNABRIAN ASSEMBLER FOR [employer] OVER [employer] 12/24/19 Amoxicillin (AMOXICILLIN) 875 Mg Tablet 1 TAB PO BID, #20 TAB Prov: BRIAN WALL ASSEMBLER FOR [employer] 12/24/19 Justicifation of Admission Dx: Justifications for Admission: Justification of Admission Dx: N/A BRIAN WALL APRN Dec 24, 2019 11:36
== END 2019-12-24 11:45 | disposition home or self-care (01) ==
LOC: ER 10:30
DX: H65.191 Other acute nonsuppurative otitis media, right ear (principal); H60.391 Other infective otitis externa, right ear; R60.0 Localized edema; J45.909 Unspecified asthma, uncomplicated; F17.200 Nicotine dependence, unspecified, uncomplicated; Z87.442 Personal history of urinary calculi; Z98.890 Other specified postprocedural states
CPT/HCPCS: 99283

== ENCOUNTER 2020-08-25 07:31 | Emergency (ER) | payer OTHER ==
[~2020-08-25] VITALS: Ht 172.7 cm; Wt 110.0 kg
[~2020-08-25 07:31] MED LIST changes: +AMOX875T PO; +OFLO5DRO7 RIGHT EAR
[2020-08-25 07:34] VITALS: BP 172/100
[2020-08-25] MEDS ORDERED: NYST100054 PO (07:58)
--- NOTE | 2020-08-25 07:58 | ED.ADGEN ---
Past Medical History Past Medical History: Asthma, Hypertension, Kidney Stone Past Surgical History: Other Additional Past Surgical Histo: UMBILICAL HERNIA Smoking Status: Current Some Day Smoker Alcohol Use: Occasionally Drug Use: None General Adult EDM: Chief Complaint: SORE THROAT HPI: HPI: Patient is a 35 year old female coming in for mouth irritation and whiteness to her tongue. Patient states that she has been using a steroid inhaler twice a day for the past 10 days. Also start taking antibiotics for H. pylori. He states a few days ago started noting irritation in her throat and tongue, the noticed white patches on her tongue. Patient tried salt water gargles. Patient states she is rinsing her mouth after times using her inhaler. Denies any systemic complaints. Review of Systems: Review of Systems: All other systems within normal limits except for as noted in the HPI Current Medications: Current Medications Medications (Trade) Dose Ordered Sig/Jeramie Start Time Stop Time Status Last Admin Dose Admin Fluconazole (Diflucan) 200 mg 1X ONCE 08/25/20 08:00 08/25/20 08:01 DC Allergies: Allergies: Allergies Coded Allergies Type Severity Reaction Last Updated Verified No Known Drug Allergies 10/11/17 No Physical Exam: PE: Constitutional: Well developed, well nourished, no acute distress, non-toxic appearance. [] HENT: Normocephalic, atraumatic, bilateral external ears normal, nose normal. White patches on tongue. Pharynx unremarkable. [] Eyes: PERRLA, conjunctiva normal, no discharge. [] Neck: No rigidity, supple, no stridor. [] Cardiovascular: Regular rate and rhythm, brisk cap refill [] Lungs & Thorax: Non labored symmetric respirations, no tachypnea or respiratory distress [] Abdomen: Soft, nondistended. Skin: Warm, dry, no erythema, no rash. [] Back: Unremarkable Extremities: No deformities, range of motion grossly intact, no lower extremity edema [] Neurologic: Alert and oriented X 3, no focal deficits noted. [] Psychologic: Affect normal, judgement normal, mood normal. [] Current Patient Data: Vital Signs: Vital Signs Date Time Temp Pulse Resp B/P (MAP) Pulse Ox O2 Delivery O2 Flow Rate FiO2 08/25/20 07:34 98.4 111 18 172/100 (124) 99 Room Air 98.4 EKG: EKG: [] Heart Score: C/O Chest Pain: N/A Risk Factors: Risk Factors: DM, Current or recent (<one month) smoker, HTN, HLP, family history of CAD, obesity. Risk Scores: Score 0 - 3: 2.5% MACE over next 6 weeks - Discharge Home Score 4 - 6: 20.3% MACE over next 6 weeks - Admit for Clinical Observation Score 7 - 10: 72.7% MACE over next 6 weeks - Early Invasive Strategies Radiology/Procedures: Radiology/Procedures: [] Course & Med Decision Making: Course & Med Decision Making Patient staffed likely secondary to combination of inhaled steroid and antibiotic use. Advised patient to discontinue inhaled steroid until completion of antibiotic therapy and reassess with primary care provider Harry Disclaimer: Harry Disclaimer: This electronic medical record was generated, in whole or in part, using a voice recognition dictation system. Departure Departure Impression: Primary Impression: Oral pharyngeal candidiasis Disposition: 01 DC HOME SELF CARE/HOMELESS Condition: STABLE Referrals: ANTWON CLIFTON MD Patient Instructions: Thrush, Adult Additional Instructions: Discontinue steroid inhaler until finished with antibiotics subsequently resolved. Use nystatin oral suspension every 6 hours until symptoms have been resolved for 48 hours. Scripts Nystatin (NYSTATIN) 100,000 Unit/1 Ml Oral.susp 5 ML PO QID for thrush for 20 Days, #400 ML Prov: GINA BELLAMY MD 08/25/20 GINA BELLAMY MD Aug 25, 2020 07:58
[2020-08-25] MEDS: FLUCONAZOLE 100 MG TABLET. PO ONE (08:02)
== END 2020-08-25 08:07 | disposition home or self-care (01) ==
LOC: ER 07:31
DX: B37.89 Other sites of candidiasis (principal); J02.9 Acute pharyngitis, unspecified; J45.909 Unspecified asthma, uncomplicated; I10 Essential (primary) hypertension; F17.200 Nicotine dependence, unspecified, uncomplicated; Z87.442 Personal history of urinary calculi; Z98.890 Other specified postprocedural states
CPT/HCPCS: 99283

== ENCOUNTER 2021-02-06 16:51 | Emergency (ER) | payer OTHER ==
[~2021-02-06] VITALS: Ht 167.6 cm; Wt 118.0 kg
[~2021-02-06 16:51] MED LIST changes: +DOXY-181 PO; -DOXY100C14 PO; +NYST100054 PO
[2021-02-06] MEDS ORDERED: fentaNYL PF VIAL 100 MCG/2 ML VIAL IVP ONE ×2 (17:30→21:15)
[2021-02-06] MEDS ORDERED: IV NORMAL SALINE 1000ML BAG 1,000 ML IV ONE (17:30)
[2021-02-06] MEDS ORDERED: ONDANSETRON PF 4 MG/2 ML VIAL. IVP ONE (17:30)
[2021-02-06 17:57] LABS: BASO # 0.1 x10^3/uL (0.0-0.2); BASO % 1 % (0-3); EOS # 0.1 x10^3/uL (0.0-0.7); EOS % 1 % (0-3); HEMATOCRIT 41.3 % (36.0-47.0); HEMOGLOBIN 13.6 g/dL (12.0-15.5); LYMPH # 2.2 x10^3/uL (1.0-4.8); LYMPH % 16 % (24-48); MEAN CORPUSCULAR HEMOGLOBIN 27 pg (25-35); MEAN CORPUSCULAR HGB CONC 33 g/dL (31-37); MEAN CORPUSCULAR VOLUME 82 fL (79-100); MONO # 0.8 x10^3/uL (0.0-1.1); MONO % 6 % (0-9); NEUT # 10.5 x10^3/uL (1.8-7.7); NEUT % 77 % (31-73); PLATELET COUNT 360 x10^3/uL (140-400); RED BLOOD COUNT 5.02 x10^6/uL (3.50-5.40); RED CELL DISTRIBUTION WIDTH 13.7 % (11.5-14.5); WHITE BLOOD COUNT 13.7 x10^3/uL (4.0-11.0)
[2021-02-06 18:08] LABS: CALCIUM 10.1 mg/dL (8.5-10.1); GFR 75.5; POTASSIUM 3.5 mmol/L (3.5-5.1)
[2021-02-06 18:12] LABS: ALBUMIN 4.3 g/dL (3.4-5.0); ALBUMIN/GLOBULIN RATIO 1.1 (1.0-1.7); TOTAL BILIRUBIN 0.6 mg/dL (0.2-1.0); TOTAL PROTEIN 8.2 g/dL (6.4-8.2)
[2021-02-06 20:03] LABS: BILIRUBIN,URINE NEGATIVE (NEG); CLARITY,URINE CLEAR; COLOR,URINE YELLOW; NITRITE,URINE NEGATIVE (NEG); PROTEIN,URINE NEGATIVE (NEG-TRACE); UROBILINOGEN,URINE 0.2 mg/dL (0.2 mg/dL)
[2021-02-06 20:22] LABS: BACTERIA,URINE FEW /HPF (0-FEW); RBC,URINE 0 /HPF (0-2)
--- NOTE | 2021-02-06 20:55 | PHYS DOC ---
Past Medical History Past Medical History: Asthma, GERD, Hypertension, Kidney Stone (DUKEBRIAN Aubrey NEUROLOGY MANAGER) Past Surgical History: Other Additional Past Surgical Histo: UMBILICAL HERNIA (KAITLYNOmayraBRIAN Aubrey NEUROLOGY MANAGER) Smoking Status: Current Some Day Smoker Alcohol Use: None Drug Use: None (BRIAN WALL Aubrey NEUROLOGY MANAGER) General Adult EDM: Chief Complaint: ABDOMINAL PAIN HPI: HPI: Patient is a 35 year old female with a history of hypertension, asthma, GERD, who presents to the ED today complaining of 8 out of 10 epigastric abdominal pain, symptoms began 2 weeks ago. Patient describes the pain as pressure. She is also complaining of distention to her abdomen. Patient denies any nausea, vomiting, urgency frequency or dysuria. Denies any chance she is . States pain is exacerbated with sitting down and relieved with standing. Patient states she had an upper GI scope a couple weeks ago which was negative (KAITLYNOmayraBRIAN Aubrey NEUROLOGY MANAGER) Review of Systems: Review of Systems: Constitutional: Denies fever or chills. [] Eyes: Denies change in visual acuity. [] HENT: Denies nasal congestion or sore throat. [] Respiratory: Denies cough or shortness of breath. [] Cardiovascular: Denies chest pain or edema. [] GI: Reports epigastric abdominal pain, denies nausea, vomiting, bloody stools or diarrhea. [] : Denies dysuria. [] Musculoskeletal: Denies back pain or joint pain. [] Integument: Denies rash. [] Neurologic: Denies headache, focal weakness or sensory changes. [] Psychiatric: Denies depression or anxiety. [] (KAITLYNOmayraBRIAN Burgos NEUROLOGY MANAGER) Heart Score: C/O Chest Pain: N/A Risk Factors: Risk Factors: DM, Current or recent (<one month) smoker, HTN, HLP, family history of CAD, obesity. Risk Scores: Score 0 - 3: 2.5% MACE over next 6 weeks - Discharge Home Score 4 - 6: 20.3% MACE over next 6 weeks - Admit for Clinical Observation Score 7 - 10: 72.7% MACE over next 6 weeks - Early Invasive Strategies (TYBRIAN THAKKAR NEUROLOGY MANAGER) Current Medications: Current Medications Medications (Trade) Dose Ordered Sig/Jeramie Start Time Stop Time Status Last Admin Dose Admin Fentanyl Citrate (Fentanyl 2ml Vial) 50 mcg 1X ONCE 9/22/21 21:15 02/06/21 21:16 Multi-Ingredient Mouthwash/Gargle (Gi Cocktail) 20 ml 1X ONCE 02/06/21 21:15 02/06/21 21:16 Ondansetron HCl (Zofran) 4 mg 1X ONCE 02/06/21 17:30 02/06/21 17:31 DC 02/06/21 17:43 4 MG Sodium Chloride 1,000 ml @ 1,000 mls/hr 1X ONCE 02/06/21 17:30 02/06/21 18:29 DC 02/06/21 17:30 1,000 MLS/HR (BRIAN WALL M NEUROLOGY MANAGER) Allergies: Allergies: Allergies Coded Allergies Type Severity Reaction Last Updated Verified No Known Drug Allergies 02/06/21 No (BRIAN WALL NEUROLOGY MANAGER) Physical Exam: PE: Constitutional: Well developed, well nourished, no acute distress, non-toxic appearance. [] HENT: Normocephalic, atraumatic, bilateral external ears normal, oropharynx moist, no oral exudates, nose normal. [] Eyes: PERRLA, EOMI, conjunctiva normal, no discharge. [] Neck: Normal range of motion, no tenderness, supple, no stridor. [] Cardiovascular:Heart rate regular rhythm, no murmur [] Lungs & Thorax: Bilateral breath sounds clear to auscultation [] Abdomen: Bowel sounds normal, soft, mild tenderness on palpation of epigastric region, slight right upper quadrant tenderness with negative Desouza sign, no right lower quadrant tenderness, no masses, no pulsatile masses. [] Skin: Warm, dry, no erythema, no rash. [] Back: No tenderness, no CVA tenderness. [] Extremities: No tenderness, no cyanosis, no clubbing, ROM intact, no edema. [] Neurologic: Alert and oriented X 3, normal motor function, normal sensory function, no focal deficits noted. [] Psychologic: Affect normal, judgement normal, mood normal. [] (BRIAN WALL M NEUROLOGY MANAGER) Current Patient Data: Labs: Laboratory Tests Test 02/06/21 17:45 02/06/21 19:55 White Blood Count 13.7 x10^3/uL (4.0-11.0) H Red Blood Count 5.02 x10^6/uL (3.50-5.40) Hemoglobin 13.6 g/dL (12.0-15.5) Hematocrit 41.3 % (36.0-47.0) Mean Corpuscular Volume 82 fL (79-100) Mean Corpuscular Hemoglobin 27 pg (25-35) Mean Corpuscular Hemoglobin Concent 33 g/dL (31-37) Red Cell Distribution Width 13.7 % (11.5-14.5) Platelet Count 360 x10^3/uL (140-400) Neutrophils (%) (Auto) 77 % (31-73) H Lymphocytes (%) (Auto) 16 % (24-48) L Monocytes (%) (Auto) 6 % (0-9) Eosinophils (%) (Auto) 1 % (0-3) Basophils (%) (Auto) 1 % (0-3) Neutrophils # (Auto) 10.5 x10^3/uL (1.8-7.7) H Lymphocytes # (Auto) 2.2 x10^3/uL (1.0-4.8) Monocytes # (Auto) 0.8 x10^3/uL (0.0-1.1) Eosinophils # (Auto) 0.1 x10^3/uL (0.0-0.7) Basophils # (Auto) 0.1 x10^3/uL (0.0-0.2) Sodium Level 138 mmol/L (136-145) Potassium Level 3.5 mmol/L (3.5-5.1) Chloride Level 100 mmol/L (98-107) Carbon Dioxide Level 24 mmol/L (21-32) Anion Gap 14 (6-14) Blood Urea Nitrogen 14 mg/dL (7-20) Creatinine 1.0 mg/dL (0.6-1.0) Estimated GFR (Cockcroft-Gault) 75.5 BUN/Creatinine Ratio 14 (6-20) Glucose Level 191 mg/dL (70-99) H Calcium Level 10.1 mg/dL (8.5-10.1) Total Bilirubin 0.6 mg/dL (0.2-1.0) Aspartate Amino Transferase (AST) 13 U/L (15-37) L Alanine Aminotransferase (ALT) 30 U/L (14-59) Alkaline Phosphatase 87 U/L (46-116) Total Protein 8.2 g/dL (6.4-8.2) Albumin 4.3 g/dL (3.4-5.0) Albumin/Globulin Ratio 1.1 (1.0-1.7) Lipase 162 U/L (73-393) Urine Collection Type Unknown Urine Color Yellow Urine Clarity Clear Urine pH 6.0 (<5.0-8.0) Urine Specific [place] 1.015 (1.000-1.030) Urine Protein Negative mg/dL (NEG-TRACE) Urine Glucose (UA) Negative mg/dL (NEG) Urine Ketones (Stick) Negative mg/dL (NEG) Urine Blood Negative (NEG) Urine Nitrite Negative (NEG) Urine Bilirubin Negative (NEG) Urine Urobilinogen Dipstick 0.2 mg/dL (0.2 mg/dL) Urine Leukocyte Esterase Negative (NEG) Urine RBC 0 /HPF (0-2) Urine WBC 1-4 /HPF (0-4) Urine Squamous Epithelial Cells Few /LPF Urine Bacteria Few /HPF (0-FEW) Urine Mucus Slight /LPF Laboratory Tests 02/06/21 17:45 Laboratory Tests 02/06/21 17:45 Vital Signs: Vital Signs Date Time Temp Pulse Resp B/P (MAP) Pulse Ox O2 Delivery O2 Flow Rate FiO2 02/06/21 18:48 92 20 132/74 (93) 98 Room Air 02/06/21 17:08 97.8 97.8 (BRIAN WALL APRN) EKG: EKG: [] (BRIAN WALL APRN) Radiology/Procedures: Radiology/Procedures: []PROCEDURE: CT ABD PELV W/ IV CONTRST ONLY Exam: CT of abdomen and pelvis with contrast INDICATION: Abdominal pain TECHNIQUE: Sequential axial images through the abdomen and pelvis obtained following the administration of 75 mL of Omni 300 IV contrast. Sagittal and coronal reformatted images were reconstructed from the axial data and reviewed. Exposure: One or more of the following in the visualized dose reduction techniques were utilized for this examination: 1. Automated exposure control 2. Adjustment of the MA and/or KV according to patient size 3. Use of iterative of reconstructive technique Comparisons: 11/17/2018 FINDINGS: Heart size is normal. No pericardial effusion visualized lung bases are clear. No pleural effusion. Liver, spleen, pancreas, gallbladder and adrenals are unremarkable. No perinephric inflammation or hydronephrosis. No renal or ureteral calculi are identified. Bladder is partially distended and not well evaluated. Uterus is nonenlarged. No abnormal adnexal mass. Large and small bowel are unremarkable. Appendix is normal. No free intra- abdominal air or fluid. No obstruction. Abdominal aorta has a normal course and caliber. Abdominal vasculature is patent. No enlarged abdominal lymph nodes are identified. No suspicious osseous lesions or acute fractures. IMPRESSION: No acute process identified in the abdomen or pelvis. Electronically signed by: Gee Montero MD (02/06/2021 9:38 PM) [facility] DICTATED and SIGNED BY: GEE MONTERO MD DATE: 02/06/21 [id number] (BRIAN WALL APRN) Course & Med Decision Making: Course & Med Decision Making Pertinent Labs and Imaging studies reviewed. (See chart for details) This is a 35-year-old female patient presenting to the ED today complaining of epigastric abdominal pain, abdominal distention, symptoms for 2 weeks. Negative urine hCG, UA negative for infection, CBC with no acute findings, CMP with glucose of 191. Will follow up with PCP for this. CT of the abdomen and pelvis is negative for any acute findings. Patient reports having an upper GI scope a couple weeks ago which was negative. She is on omeprazole. Encourage patient to continue following up with her PCP as well as GI. Provided return precautions and discharged in stable condition (BRIAN WALL APRN) Course & Med Decision Making Patients Care and treatment plan provided by ER Nurse Practitioner. I was available for consult. Patient's chart reviewed. (SHREYAS LEY DO) Harry Disclaimer: Harry Disclaimer: This electronic medical record was generated, in whole or in part, using a voice recognition dictation system. (BRIAN WALL APRN) Departure Departure Impression: Primary Impression: Abdominal pain Qualified Codes: R10.13 - Epigastric pain Disposition: HOME / SELF CARE / HOMELESS Condition: STABLE Referrals: ANTWON CLIFTON MD (PCP) ARNALDO AGUILAR MD follow up in one week Patient Instructions: Abdominal Pain Additional Instructions: You were evaluated in the emergency room for epigastric abdominal pain. Your work-up was negative for any acute findings. Please follow-up with your GI doctor as well as your primary care doctor. BRIAN WALL APRN Feb 06, 2021 20:54 SHREYAS LEY DO Feb 06, 2021 22:42
[2021-02-06] MEDS ORDERED: CONTRAST GIVEN. MC PRN (21:15)
[2021-02-06] MEDS ORDERED: LIDO:MAALOX 1:1 20 ML SINGLE DOSE. SWSW ONE (21:15)
[2021-02-06 21:19] LABS: U PREG PATIENT NEGATIVE (NEG)
[2021-02-06] MEDS ORDERED: IOHEXOL 300 MG/ML 100ML VIAL. IV ONE (21:30)
--- NOTE | 2021-02-06 21:41 | RAD ---
Exam: CT of abdomen and pelvis with contrast INDICATION: Abdominal pain TECHNIQUE: Sequential axial images through the abdomen and pelvis obtained following the administrati on of 75 mL of Omni 300 IV contrast. Sagittal and coronal reformatted images were reconstructed from the axial data and reviewed. Exposure: One or more of the following in the visualized dose reduction techniques were utilized for this examination: 1. Automated exposure control 2. Adjustment of the MA and/or KV according to patient size 3. Use of iterative of reconstructive technique Comparisons: 11/17/2018 FINDINGS: Heart size is normal. No pericardial effusion visualized lung bases are clear. No pleural effusion. Liver, spleen, pancreas, gallbladder and adrenals are unremarkable. No perinephric inflammation or hydronephrosis. No renal or ureteral calculi are identified. Bladder is partially distended and not well evaluated. Uterus is nonenlarged. No abnormal adnexal mas s. Large and small bowel are unremarkable. Appendix is normal. No free intra-abdominal air or fluid. No obstruction. Abdominal aorta has a normal course and caliber. Abdominal vasculature is patent. No enlarged abdominal lymph nodes are identified. No suspicious osseous lesions or acute fractures. IMPRESSION: No acute process identified in the abdomen or pelvis. Electronically signed by: Gee Bailey MD (02/06/2021 9:38 PM) [facility]
[2021-02-06 22:00] VITALS: BP 120/66
== END 2021-02-06 22:30 | disposition home or self-care (01) ==
LOC: ER 16:51
DX: R10.13 Epigastric pain (principal); K21.9 Gastro-esophageal reflux disease without esophagitis; I10 Essential (primary) hypertension; J45.909 Unspecified asthma, uncomplicated; F17.200 Nicotine dependence, unspecified, uncomplicated
CPT/HCPCS: 36415; 74177; 80053; 81001; 81025; 83690; 85025; 96361; 96374; 96375; 96376; 99285; J2405; J3010; J7030; Q9967

== ENCOUNTER 2021-02-15 16:56 | Emergency (ER) | payer OTHER ==
[~2021-02-15] VITALS: Ht 167.6 cm; Wt 110.0 kg
[2021-02-15 17:46] LABS: U PREG PATIENT NEGATIVE (NEG)
[2021-02-15 17:47] LABS: BILIRUBIN,URINE NEGATIVE (NEG); CLARITY,URINE CLEAR; COLOR,URINE YELLOW; NITRITE,URINE NEGATIVE (NEG); PH,URINE 7.5 (<5.0-8.0); PROTEIN,URINE NEGATIVE (NEG-TRACE); UROBILINOGEN,URINE 0.2 mg/dL (0.2 mg/dL)
[2021-02-15 18:01] LABS: BASO # 0.1 x10^3/uL (0.0-0.2); BASO % 1 % (0-3); EOS # 0.3 x10^3/uL (0.0-0.7); EOS % 3 % (0-3); HEMOGLOBIN 13.8 g/dL (12.0-15.5); LYMPH # 3.5 x10^3/uL (1.0-4.8); LYMPH % 39 % (24-48); MEAN CORPUSCULAR HEMOGLOBIN 28 pg (25-35); MEAN CORPUSCULAR HGB CONC 34 g/dL (31-37); MEAN CORPUSCULAR VOLUME 82 fL (79-100); MONO # 0.5 x10^3/uL (0.0-1.1); MONO % 6 % (0-9); NEUT # 4.4 x10^3/uL (1.8-7.7); NEUT % 51 % (31-73); PLATELET COUNT 352 x10^3/uL (140-400); RED BLOOD COUNT 4.98 x10^6/uL (3.50-5.40); RED CELL DISTRIBUTION WIDTH 13.6 % (11.5-14.5); WHITE BLOOD COUNT 8.8 x10^3/uL (4.0-11.0)
[2021-02-15 18:02] LABS: BACTERIA,URINE FEW /HPF (0-FEW)
[2021-02-15 18:04] LABS: RBC,URINE 0 /HPF (0-2)
[2021-02-15 18:18] LABS: CALCIUM 9.9 mg/dL (8.5-10.1); GFR 75.5; POTASSIUM 3.7 mmol/L (3.5-5.1)
--- NOTE | 2021-02-15 18:20 | RAD ---
XR CHEST 1V History: Reason: Cough short of breath / Spl. Instructions: / History: Comparison: December 17, 2018 Findings: No consolidation or pleural effusion. Normal heart size. No pneumothorax. Chronic left midclavicular fracture. Impression: 1. No acute cardiopulmonary process. Electronically signed by: Oneal Vallejo DO (02/15/2021 6:18 PM) [facility] [place]
[2021-02-15 18:25] LABS: ALBUMIN 4.2 g/dL (3.4-5.0); TOTAL BILIRUBIN 0.4 mg/dL (0.2-1.0)
[2021-02-15] MEDS ORDERED: IOHEXOL 350 MG/ML 100 ML VIAL. IV ONE (18:30)
[2021-02-15] MEDS ORDERED: CONTRAST GIVEN. MC PRN (18:30)
[2021-02-15 18:37] LABS: TOTAL PROTEIN 8.3 g/dL (6.4-8.2)
--- NOTE | 2021-02-15 18:52 | RAD ---
Exam: CT of chest with contrast INDICATION: Short of air TECHNIQUE: Sequential axial images through the chest obtained following the administration of 100 mL of Omni 350 IV contrast. Sagittal and coronal reformatted images were reconstructed from the axial da ta and reviewed. 3-D reformatted images were reconstructed from the axial data and reviewed. Exposure: One or more of the following in the visualized dose reduction techniques were utilized for this examination: 1. Automated exposure control 2. Adjustment of the MA and/or KV according to patient size 3. Use of iterative of reconstructive technique Comparisons: None FINDINGS: Visualized portions of the thyroid are unremarkable. No enlarged mediastinal lymph nodes are identifi ed. Heart size is normal. No pericardial effusion. Thoracic aorta has a normal course and caliber. Pulmon lashaun artery is not enlarged. No pulmonary embolus identified within the main, lobar or segmental pulmo nary arteries. Airways are patent. No consolidation or pneumothorax. No suspicious lung nodules. No pleural effusion or thickening. Visualized upper abdomen is unremarkable. No suspicious osseous lesions or acute fractures. IMPRESSION: No pulmonary embolus identified within the main, lobar or segmental pulmonary arteries. Electronically signed by: Gee Bailey MD (02/15/2021 6:49 PM) [facility]
[2021-02-15 19:30] VITALS: BP 145/95
[2021-02-15] MEDS ORDERED: methylPREDNISolone SOD SUCC PF 125 MG/2 ML VIAL. IV ONE (20:30)
[2021-02-15] MEDS ORDERED: BENZONATATE 100 MG CAPSULE. PO ONE (20:30)
[2021-02-15] MEDS ORDERED: METH4TAB2 PO (20:32)
[2021-02-15] MEDS ORDERED: BENZ100C PO (20:32)
--- NOTE | 2021-02-15 20:33 | PHYS DOC ---
Past Medical History Past Medical History: Asthma, GERD, Hypertension, Kidney Stone Past Surgical History: No Surgical History Additional Past Surgical Histo: UMBILICAL HERNIA Smoking Status: Current Some Day Smoker Alcohol Use: None Drug Use: None General Adult EDM: Chief Complaint: COUGH HPI: HPI: Patient is a 35 year old female who presents emergency department complaining of cough since January 25. Patient reports she has been worked up several times and no one can tell her what is going on. Patient reports negative Covid test on January 25, states she was on a Medrol Dosepak which seemed to help some but her symptoms have come back. Patient states she called her primary care doctor's office and she was told she might have a blood clot in her lung and to come straight to the emergency department. patient reports she is using her nebulizer treatment every 2-3 hours for the past 2 weeks straight. Patient denies chest pain or chest congestion, denies nasal congestion. Denies fever or chills. Patient denies abdominal pains. Patient denies other physical complaints or physical concerns. Review of Systems: Review of Systems: 14 body systems of review of systems have been reviewed. See HPI for pertinent positives and negative responses, otherwise all other systems are negative, nonpertinent or noncontributory. Constitutional: Negative except as outlined in HPI above. Skin: Negative except as outlined in HPI above. Eyes: Negative except as outlined in HPI above. HENT: Negative except as outlined in HPI above. Respiratory: Negative except as outlined in HPI above. Cardiovascular: Negative except as outlined in HPI above. GI: Negative except as outlined in HPI above. : Negative except as outlined in HPI above. Musculoskeletal: Negative except as outlined in HPI above. Integument: Negative except as outlined in HPI above. Neurologic: Negative except as outlined in HPI above. Endocrine: Negative except as outlined in HPI above. Lymphatic: Negative except as outlined in HPI above. Psychiatric: Negative except as outlined in HPI above. Heart Score: C/O Chest Pain: No Risk Factors: Risk Factors: DM, Current or recent (<one month) smoker, HTN, HLP, family history of CAD, obesity. Risk Scores: Score 0 - 3: 2.5% MACE over next 6 weeks - Discharge Home Score 4 - 6: 20.3% MACE over next 6 weeks - Admit for Clinical Observation Score 7 - 10: 72.7% MACE over next 6 weeks - Early Invasive Strategies Current Medications: Current Medications Medications (Trade) Dose Ordered Sig/Jeramie Start Time Stop Time Status Last Admin Dose Admin Benzonatate (Tessalon Perle) 100 mg 1X ONCE 02/15/21 20:30 02/15/21 20:31 UNV Info (CONTRAST GIVEN -- Rx MONITORING) 1 each PRN DAILY PRN 02/15/21 18:30 02/17/21 18:29 Iohexol (Omnipaque 350 Mg/ml) 100 ml 1X ONCE 02/15/21 18:30 02/15/21 18:31 DC 02/15/21 18:41 100 ML Methylprednisolone Sodium Succinate (SOLU-Medrol 125MG VIAL) 125 mg 1X ONCE 02/15/21 20:30 02/15/21 20:31 UNV Allergies: Allergies: Allergies Coded Allergies Type Severity Reaction Last Updated Verified No Known Drug Allergies 02/15/21 No Physical Exam: PE: Constitutional: Well developed, well nourished, no acute distress, non-toxic appearance. 35-year-old female coughing during physical examination otherwise in no apparent distress. HENT: Normocephalic, atraumatic. Eyes: Conjunctiva normal, no discharge. Neck: Normal range of motion, no stridor. Cardiovascular: No cyanosis appreciated, distal cap refill less than 2 seconds. Lungs & Thorax: Patient is in no respiratory distress, no audible adventitious lung sounds appreciated. Lung sounds clear to auscultate all lung moise, no adventitious lung sounds appreciated. Abdomen: Nontender, no abnormalities noted. Skin: Warm, dry, no erythema, no rash. Back: No tenderness, no deformities. Extremities: No tenderness, no cyanosis, no clubbing, ROM intact, no edema. Neurologic: Alert and oriented X 3, normal motor function, normal sensory function, no focal deficits noted. Psychologic: Affect normal, judgement normal, mood normal. Current Patient Data: Labs: Laboratory Tests Test 02/15/21 17:30 02/15/21 17:51 02/15/21 17:55 Urine Collection Type Unknown Urine Color Yellow Urine Clarity Clear Urine pH 7.5 Urine Specific [place] 1.015 Urine Protein Negative mg/dL Urine Glucose (UA) Negative mg/dL Urine Ketones (Stick) Negative mg/dL Urine Blood Negative Urine Nitrite Negative Urine Bilirubin Negative Urine Urobilinogen Dipstick 0.2 mg/dL Urine Leukocyte Esterase Negative Urine RBC 0 /HPF Urine WBC 5-10 /HPF Urine Squamous Epithelial Cells Few /LPF Urine Bacteria Few /HPF Urine Mucus Mod /LPF Urine Test Negative White Blood Count 8.8 x10^3/uL Red Blood Count 4.98 x10^6/uL Hemoglobin 13.8 g/dL Hematocrit 41.0 % Mean Corpuscular Volume 82 fL Mean Corpuscular Hemoglobin 28 pg Mean Corpuscular Hemoglobin Concent 34 g/dL Red Cell Distribution Width 13.6 % Platelet Count 352 x10^3/uL Neutrophils (%) (Auto) 51 % Lymphocytes (%) (Auto) 39 % Monocytes (%) (Auto) 6 % Eosinophils (%) (Auto) 3 % Basophils (%) (Auto) 1 % Neutrophils # (Auto) 4.4 x10^3/uL Lymphocytes # (Auto) 3.5 x10^3/uL Monocytes # (Auto) 0.5 x10^3/uL Eosinophils # (Auto) 0.3 x10^3/uL Basophils # (Auto) 0.1 x10^3/uL Sodium Level 138 mmol/L Potassium Level 3.7 mmol/L Chloride Level 102 mmol/L Carbon Dioxide Level 26 mmol/L Anion Gap 10 Blood Urea Nitrogen 9 mg/dL Creatinine 1.0 mg/dL Estimated GFR (Cockcroft-Gault) 75.5 BUN/Creatinine Ratio 9 Glucose Level 115 mg/dL Calcium Level 9.9 mg/dL Total Bilirubin 0.4 mg/dL Aspartate Amino Transf (AST/SGOT) 15 U/L Alanine Aminotransferase (ALT/SGPT) 34 U/L Alkaline Phosphatase 84 U/L Total Protein 8.3 g/dL Albumin 4.2 g/dL Albumin/Globulin Ratio 1.0 SARS-CoV-2 Antigen (Rapid) Negative Current Medications Medications (Trade) Dose Ordered Sig/Jeramie Route PRN Reason Start Time Stop Time Status Last Admin Dose Admin Iohexol (Omnipaque 350 Mg/ml) 100 ml 1X ONCE IV 02/15/21 18:30 02/15/21 18:31 DC 02/15/21 18:41 100 ML Info (CONTRAST GIVEN -- Rx MONITORING) 1 each PRN DAILY PRN MC SEE COMMENTS 02/15/21 18:30 02/17/21 18:29 Methylprednisolone Sodium Succinate (SOLU-Medrol 125MG VIAL) 125 mg 1X ONCE IV 02/15/21 20:30 02/15/21 20:31 UNV Benzonatate (Tessalon Perle) 100 mg 1X ONCE PO 02/15/21 20:30 02/15/21 20:31 UNV Laboratory Tests Test 02/15/21 17:30 02/15/21 17:51 02/15/21 17:55 Urine Collection Type Unknown Urine Color Yellow Urine Clarity Clear Urine pH 7.5 (<5.0-8.0) Urine Specific [place] 1.015 (1.000-1.030) Urine Protein Negative mg/dL (NEG-TRACE) Urine Glucose (UA) Negative mg/dL (NEG) Urine Ketones (Stick) Negative mg/dL (NEG) Urine Blood Negative (NEG) Urine Nitrite Negative (NEG) Urine Bilirubin Negative (NEG) Urine Urobilinogen Dipstick 0.2 mg/dL (0.2 mg/dL) Urine Leukocyte Esterase Negative (NEG) Urine RBC 0 /HPF (0-2) Urine WBC 5-10 /HPF (0-4) Urine Squamous Epithelial Cells Few /LPF Urine Bacteria Few /HPF (0-FEW) Urine Mucus Mod /LPF Urine Test Negative (NEG) White Blood Count 8.8 x10^3/uL (4.0-11.0) Red Blood Count 4.98 x10^6/uL (3.50-5.40) Hemoglobin 13.8 g/dL (12.0-15.5) Hematocrit 41.0 % (36.0-47.0) Mean Corpuscular Volume 82 fL (79-100) Mean Corpuscular Hemoglobin 28 pg (25-35) Mean Corpuscular Hemoglobin Concent 34 g/dL (31-37) Red Cell Distribution Width 13.6 % (11.5-14.5) Platelet Count 352 x10^3/uL (140-400) Neutrophils (%) (Auto) 51 % (31-73) Lymphocytes (%) (Auto) 39 % (24-48) Monocytes (%) (Auto) 6 % (0-9) Eosinophils (%) (Auto) 3 % (0-3) Basophils (%) (Auto) 1 % (0-3) Neutrophils # (Auto) 4.4 x10^3/uL (1.8-7.7) Lymphocytes # (Auto) 3.5 x10^3/uL (1.0-4.8) Monocytes # (Auto) 0.5 x10^3/uL (0.0-1.1) Eosinophils # (Auto) 0.3 x10^3/uL (0.0-0.7) Basophils # (Auto) 0.1 x10^3/uL (0.0-0.2) Sodium Level 138 mmol/L (136-145) Potassium Level 3.7 mmol/L (3.5-5.1) Chloride Level 102 mmol/L (98-107) Carbon Dioxide Level 26 mmol/L (21-32) Anion Gap 10 (6-14) Blood Urea Nitrogen 9 mg/dL (7-20) Creatinine 1.0 mg/dL (0.6-1.0) Estimated GFR (Cockcroft-Gault) 75.5 BUN/Creatinine Ratio 9 (6-20) Glucose Level 115 mg/dL (70-99) H Calcium Level 9.9 mg/dL (8.5-10.1) Total Bilirubin 0.4 mg/dL (0.2-1.0) Aspartate Amino Transferase (AST) 15 U/L (15-37) Alanine Aminotransferase (ALT) 34 U/L (14-59) Alkaline Phosphatase 84 U/L (46-116) Total Protein 8.3 g/dL (6.4-8.2) H Albumin 4.2 g/dL (3.4-5.0) Albumin/Globulin Ratio 1.0 (1.0-1.7) SARS-CoV-2 Antigen (Rapid) Negative (NEGATIVE) Laboratory Tests 02/15/21 17:51 Laboratory Tests 02/15/21 17:51 Vital Signs: Vital Signs Date Time Temp Pulse Resp B/P (MAP) Pulse Ox O2 Delivery O2 Flow Rate FiO2 02/15/21 17:13 98.2 100 17 159/81 (107) 100 Room Air 98.2 EKG: EKG: [] Radiology/Procedures: Radiology/Procedures: PATIENT: ARTUR PRESTON MACCOUNT: [id number] : 1985 LOCATION: ER AGE: 35 SEX: F EXAM STATUS: PRE ER ORD. PHYSICIAN: AMILCAR SMITH APRN REASON: Cough short of breath PROCEDURE: CHEST AP ONLY XR CHEST 1V History: Reason: Cough short of breath / Spl. Instructions: / History: Comparison: December 17, 2018 Findings: No consolidation or pleural effusion. Normal heart size. No pneumothorax. Chronic left midclavicular fracture. Impression: 1. No acute cardiopulmonary process. Electronically signed by: Oneal Vallejo DO (02/15/2021 6:18 PM) [facility] PATIENT: ARTUR PRESTON MACCOUNT: [id number] : 1985 LOCATION: ER AGE: 35 SEX: F EXAM STATUS: REG ER ORD. PHYSICIAN: AMILCAR SMITH APRN REASON: SOA, Sent from primary MD for PE study PROCEDURE: CT ANGIOGRAPHY CHEST Exam: CT of chest with contrast INDICATION: Short of air TECHNIQUE: Sequential axial images through the chest obtained following the administration of 100 mL of Omni 350 IV contrast. Sagittal and coronal reformatted images were reconstructed from the axial data and reviewed. 3-D reformatted images were reconstructed from the axial data and reviewed. Exposure: One or more of the following in the visualized dose reduction techniques were utilized for this examination: 1. Automated exposure control 2. Adjustment of the MA and/or KV according to patient size 3. Use of iterative of reconstructive technique Comparisons: None FINDINGS: Visualized portions of the thyroid are unremarkable. No enlarged mediastinal lymph nodes are identified. Heart size is normal. No pericardial effusion. Thoracic aorta has a normal course and caliber. Pulmonary artery is not enlarged. No pulmonary embolus identified within the main, lobar or segmental pulmonary arteries. Airways are patent. No consolidation or pneumothorax. No suspicious lung nodules. No pleural effusion or thickening. Visualized upper abdomen is unremarkable. No suspicious osseous lesions or acute fractures. IMPRESSION: No pulmonary embolus identified within the main, lobar or segmental pulmonary arteries. Electronically signed by: Gee Bailey MD (02/15/2021 6:49 PM) [facility] Course & Med Decision Making: Course & Med Decision Making Pertinent Labs and Imaging studies reviewed. (See chart for details) 35-year-old female, vital signs reviewed, presents emergency department concerning cough for several weeks, patient reports being sent here by primary MD to rule out pulmonary embolus. Physical examination unremarkable, unlikely a pulmonary emboli, however will do pulmonary emboli work-up Patient's work-up negative. CT chest negative for pulmonary embolus. Discussed findings with patient, will give IV steroid with prescription for Medrol Dosepak at home, Tessalon Perle, patient gave verbal understanding of and is amenable to ED discharge planning. We will diagnose with cough, discussed with the patient all findings and diagnostic testing as well as the need to follow-up with their primary care provider for further evaluation and treatment or return to the ED if any new or worsening symptoms. Strict return precautions were also discussed at length, the patient voiced understanding and agreement with the discharge planning. The patient was nontoxic in appearance, in no apparent distress, and hemodynamically stable at the time of disposition. Dragon Disclaimer: Dragon Disclaimer: This electronic medical record was generated, in whole or in part, using a voice recognition dictation system. Departure Departure Impression: Primary Impression: Cough Disposition: 01 HOME / SELF CARE / HOMELESS Condition: GOOD Referrals: ANTWON CLIFTON MD (PCP) Additional Instructions: You were seen today in the emergency department for chronic cough, a extensive pulmonary work-up was performed today, you do not have a pneumonia, there is no infectious process, you do not have a pulmonary embolus. You were given a intravenous injection of Solu-Medrol 125 mg, you are also given a Tessalon Perle for cough. I have prescribed for you a Medrol dose pack, please take as directed. I have also prescribed you Tessalon Perles for cough. Please follow- up with your primary care doctor this Thursday for ongoing management of cough and respiratory problems. Thank you for visiting our Emergency Department. It was a pleasure taking care of you today in the emergency department and we appreciate you trusting us with your care. If any additional problems come up don't hesitate to return to visit us. Please follow up with your primary care provider so they can plan additional care if needed and know about the problem that you had. If symptoms worsen come back to the Emergency Department. Any concerning symptoms that start such as chest pain, shortness of air, weakness or numbness on one side of the body, running high fevers or any other concerning symptoms return to the ER. EMERGENCY DEPARTMENT GENERAL DISCHARGE INSTRUCTIONS Thank you for coming to [facility] Emergency Department (ED) today and trusting us with you care. We trust that you had a positive experience in our Emergency Department. If you wish to speak to the department management, you may call the Director at [phone]. YOUR FOLLOW UP INSTRUCTIONS ARE FOLLOWS: 1. Do you have a private Doctor? If you do not have a private doctor, please ask for a resource list of physicians or clinics that may be able to assist you with f ollow up care. 2. The Emergency Physicain has interpreted your x-rays. The X-Ray specialist will also review them. If there is a change in the findings, you will be notified in 48 hours when at all possible. 3. A lab test or culture has been done, your results will be reviewed and you will be notified if you need a change in treatment. ADDITIONAL INSTRUCTIONS AND INFORMATION: 1. Your care today has been supervised by a physician who is specially trained in emergency care. Many problems require more than one evaluation for a complete diagnosis and treatment. We recommend that you schedule your follow up appointment as recommended to ensure complete treatment of you illness or injury. If you are unable to obtain follow up care and continue to have a problem, or if your condition worsens, we recommend that you return to the ED. 2. We are not able to safely determine your condition over the phone nor are we able to give sound medical advice over the phone. For these safety reasons, if you call for medical advice we will ask you to come to the ED for further evaluation. 3. If you have any questions regarding these discharge instructions please call the ED at [phone]. SAFETY INFORMATION: In the interest of safety, wellness, and injury prevention; we encourage you to wear your sealbelt, if you smoke; quite smoking, and we encourage family to use a protective helmet for bicycling and other sporting events that present an increased risk for head injury. IF YOUR SYMPTOMS WORSEN OR NEW SYMPTOMS DEVELOP, OR YOU HAVE CONCERNS ABOUT YOUR CONDITION; OR IF YOUR CONDITION WORSENS WHILE YOU ARE WAITING FOR YOUR FOLLOW UP APPOINTMENT; EITHER CONTACT YOUR PRIMARY CARE DOCTOR, THE PHYSICIAN WHOSE NAME AND NUMBER YOU WERE GIVEN, OR RETURN TO THE ED IMMEDIATELY. Scripts Benzonatate (TESSALON PERLE) 100 Mg Capsule 1 CAP PO TID, #21 CAP 0 Refills Prov: AMILCAR SMITH APRN 02/15/21 Methylprednisolone (MEDROL) 4 Mg Tab.ds.pk 1 PKG PO UD for cough, #1 PKG 0 Refills Prov: AMILCAR SMITH APRN 02/15/21 AMILCAR SMITH APRN Feb 15, 2021 20:33
--- NOTE | 2021-02-17 15:45 | NUR ---
IP: Attempted to notify of negative COVID19 test result. Voicemail message left to please return call at number provided.
--- NOTE | 2021-02-18 07:42 | NUR ---
IP: Patient notified of negative COVID19 test result. Verbalized understanding.
== END 2021-02-15 20:47 | disposition home or self-care (01) ==
LOC: ER 16:56
DX: R05.9 Cough, unspecified (principal); Z20.822 Contact with and (suspected) exposure to COVID-19; J45.909 Unspecified asthma, uncomplicated; K21.9 Gastro-esophageal reflux disease without esophagitis; I10 Essential (primary) hypertension; F17.200 Nicotine dependence, unspecified, uncomplicated
CPT/HCPCS: 36415; 71045; 71275; 80053; 81001; 81025; 85025; 87086; 87426; 96374; 99285; J2930; Q9967; U0003; U0005

== ENCOUNTER → 2021-03-19 | Outpatient (CLI) | payer OTHER ==
[~2021-03-19] VITALS: Ht 170.2 cm; Wt 70.3 kg
[~2021-03-19] MED LIST changes: +BENZ100C PO; +METH4TAB2 PO; +SINCALIDE 1.41 MCG in IV NORMAL SALINE 50ML 30 ML IV ONE
--- NOTE | 2021-03-19 08:17 | RAD ---
INDICATION: Reason: NAUSEA, VOMITING / Spl. Instructions: / History: COMPARISON: CT from February 06, 2021 TECHNIQUE: Grayscale and color ultrasound images obtained through the abdomen. FINDINGS: Pancreas: Visualized portions unremarkable. Liver: Echotexture within normal limits. Gallbladder: No definite stones or wall thickening. Common Bile Duct: Not dilated. Right Kidney: No hydronephrosis. Left Kidney: No hydronephrosis. Spleen: Unremarkable. Aorta/IVC: Visualized portion unremarkable. IMPRESSION: * No gallstones or common bile duct dilation. Electronically signed by: Vladimir Hummel MD (03/19/2021 8:15 AM) [id number]
--- NOTE | 2021-03-19 10:48 | RAD ---
INDICATION: Abdomen pain COMPARISON: Ultrasound from same day TECHNIQUE: 5.5mCi of Tc99m Choletec was injected intravenously followed by scintigraphic images of the abdomen. 1.4 mcg of CCK was then injected and a gallbladder ejection fraction was calculated. FINDINGS: Appropriate radiotracer clearance from the blood pool. Appropriate radiotracer excretion into the biliary tree. Prompt passage of contrast into the small bowel. Visualization of the gallbladder prior to the 60 minute time point. Gallbladder ejection fraction is 15 percent. IMPRESSION: * No scintigraphic evidence of acute cholecystitis or high grade biliary obstruction. * Gallbladder ejection fraction is low. Would correlate for possible causes such as biliary dyskine lucy. Electronically signed by: Vladimir Hummel MD (03/19/2021 10:45 AM) [id number]
== END ==
LOC: US 07:00
PROVIDERS: ATTEND Internal Medicine Gastroenterology
DX: R11.2 Nausea with vomiting, unspecified (principal)
CPT/HCPCS: 76700; 78227; A9537; J2805

== ENCOUNTER 2021-05-27 07:23 | Day surgery (SDC) | payer OTHER ==
[~2021-05-27] VITALS: Ht 156.2 cm; Wt 104.9 kg
[~2021-05-27 07:23] MED LIST changes: +BUPIVACAINE MPF 0.5% 30 ML VIAL. ONE; +DULA0.75 SQ; +FAMO-63 PO; +FLUT16SP NS; +HYDROmorphone 2 MG/ML INJ. IVP PRN; +IOHEXOL 300 MG/ML 50 ML VIAL. ONE; +IV RINGERS,LACTATED 1000ML 1,000 ML IV SCH; +LISI5TAB15 PO; +METF10007 PO; +PANT40TA77 PO; -SINCALIDE 1.41 MCG in IV NORMAL SALINE 50ML 30 ML IV ONE; +SURGICEL HEMOSTAT 4X8 EACH. ONE; +[UNRECOGNIZED DRUG - REMARK] PO; +fentaNYL PF VIAL 100 MCG/2 ML VIAL IVP PRN
[2021-05-27 07:52] VITALS: BP 141/73
[2021-05-27] MEDS: INSULIN LISPRO 100 UNIT/ML 3ML VIAL for OP,RR ONLY. SQ PRN ×2 (08:12→10:16)
[2021-05-27] MEDS ORDERED: PROPOFOL 10 MG/ML (20ML) VIAL. IV ONE (08:24)
[2021-05-27] MEDS ORDERED: FAMOTIDINE 20 MG/2 ML VIAL ONE (08:24)
[2021-05-27] MEDS ORDERED: LIDOCAINE 2% PF 5 ML VIAL. ONE (08:24)
[2021-05-27] MEDS ORDERED: DEXAMETHASONE SOD PHOS 4 MG/ML VIAL ONE (08:24)
[2021-05-27] MEDS ORDERED: MIDAZOLAM HCL/PF 2 MG/2 ML VIAL. ONE (08:25)
[2021-05-27] MEDS ORDERED: fentaNYL PF VIAL 100 MCG/2 ML VIAL ONE ×3 (08:25→10:59)
[2021-05-27] MEDS ORDERED: ROCURONIUM 50 MG/5 ML VIAL. ONE (08:26)
[2021-05-27] MEDS ORDERED: KETOROLAC 30 MG/ML VIAL. ONE (09:08)
[2021-05-27] MEDS ORDERED: GLYCOPYRROLATE 1 MG/5 ML VIAL. ONE (09:10)
[2021-05-27] MEDS ORDERED: NEOSTIGMINE METHYLSULFATE 5 MG/5 ML SYRINGE. ONE (09:10)
--- NOTE | 2021-05-27 09:16 | RAD ---
DG INTRAOPERATIVE CHOLANGIOGRAM 05/27/2021 9:00 AM INDICATION: Cholangiogram COMPARISON: Hepatobiliary scan 04/06/2021 TECHNIQUE: Number of images provided: 3 Fluoroscopy time: 23.3 seconds FINDINGS: Fluoroscopy is provided for intraoperative use. There is contrast opacification of the common bile du ct and cystic duct. No definite filling of the intrahepatic biliary system visualized. Contrast opaci fies the small bowel. No significant stricture or filling defect. IMPRESSION: 1. Cholangiogram performed because fluoroscopy. 2. Please refer to the separate operative report for further details. Electronically signed by: Aislinn Ward MD (05/27/2021 9:13 AM) [id number]
--- NOTE | 2021-05-27 09:38 | PDOC4 ---
Operative Note Operative Note Operative Note: Preoperative Diagnosis: Biliary dyskinesia Postoperative Diagnosis: Same Procedure: Laparoscopic cholecystectomy with intraoperative cholangiogram Surgeons: Emiliano Traffic Or System Dispatcher: Pietro Kohler MS 3 Anesthesia: Gen. Estimated Blood Loss: 10 mL Specimen: Gallbladder to pathology Drains: None Complications: None Indications: The patient is a 36-year-old female who underwent evaluation for abdominal pain. Her testing was consistent with biliary dyskinesia. Surgical treatment was offered by means of a laparoscopic cholecystectomy. The risks of surgery were discussed which include bleeding, infection, bile duct injury, bile leak, pain, the potential for additional surgeries or procedures. The patient understands and would like to proceed. Description: The patient was taken to the operating room and laid supine on the operating table. General anesthesia was performed. The abdomen was prepped with ChloraPrep and draped in a standard surgical fashion. A incision was made in the right abdomen to avoid a prior umbilical hernia repair. Through this a visualized 5 mm trocar was inserted. Pneumoperitoneum was created and the laparoscope was introduced. In the upper midabdomen an 11 mm trocar was inserted and in the right upper quadrant two 2.3 mm mini lap graspers were inserted. The gallbladder was retracted cephalad. The cystic duct was dissected free from surrounding tissues. One clip was placed on the duct near the gallbladder junction. An opening was made in the duct and a cholangiocatheter placed within and secured with a clip. Using contrast dye and fluoroscopy an intraoperative cholangiogram was performed that appeared unremarkable. The clip and catheter were then withdrawn. Three clips were placed on the cystic duct and it was divided. The cystic artery was then identified, dissected free, doubly clipped and divided as well. The gallbladder was then mobilized away from the liver with cautery. The umbilical 5 millimeter trocar was exchanged for an 11 millimeter trocar. The gallbladder was then placed in an endoscopic bag and extracted at the superior trocar site. The fascia there was closed with an 0 Vicryl suture and infiltrated with 0.5% marcaine. All blood and irrigation fluid was suctioned and hemostasis was good. The remaining ports were removed and the pneumoperitoneum was relieved. The skin incisions were closed using 4-0 Monocryl suture. Steri-Strips and dressings were then applied. The patient tolerated the procedure well and was sent to the recovery room in stable condition. At the end of the case all counts were correct. ARNALDO GARCIA MD May 27, 2021 09:38
[2021-05-27] MEDS ORDERED: OXYC-325 PO (09:40)
[2021-05-27] MEDS ORDERED: BUPIVACAINE MPF 0.5% 30 ML VIAL. ONE (09:40)
--- NOTE | 2021-05-27 09:42 | DISCH ---
DISCHARGE INSTRUCTIONS Condition on Discharge Condition on Discharge: Stable Activity After Discharge Activity Instructions for Disc: Other, see below (No lifting over 20 lbs X 2 weeks, no driving while taking pain meds) Diet after Discharge Diet after Discharge: Regular Wound Incision Care Wound/Incision Care: Other, see below (may remove bandaids tomorrow and shower, steristrips fall off on their own) Follow-Up Follow up with: Dr Garcia in 2 weeks, call for appointment [phone] ARNALDO GARCIA MD May 27, 2021 09:42
[2021-05-27] MEDS: fentaNYL PF VIAL 100 MCG/2 ML VIAL IVP PRN ×4 (10:12→11:21)
[2021-05-27] MEDS ORDERED: oxyCODONE/APAP 5/325 1 TAB TABLET PO ONE (10:15)
[2021-05-27] MEDS ORDERED: INSULIN LISPRO 100 UNIT/ML 3ML VIAL for OP,RR ONLY. SQ ONE ×2 (10:30)
[2021-05-27] MEDS ORDERED: MORPHINE SULFATE 2 MG/ML INJ. ONE (10:42)
[2021-05-27] MEDS ORDERED: PROCHLORPERAZINE 10 MG/2 ML VIAL. ONE (10:43)
[2021-05-27] MEDS: PROCHLORPERAZINE 10 MG/2 ML VIAL. IVP PRN ×2 (10:44→10:59)
[2021-05-27] MEDS: MORPHINE SULFATE 2 MG/ML INJ. IVP PRN ×2 (10:45→11:00)
[2021-05-27 12:00] VITALS: BP 137/82
--- NOTE | 2021-05-29 16:10 | PATHOLOGY ---
[facility] Accession Number: [id number] . 01 Material submitted: . gallbladder - GALLBLADDER AND CONTENTS . 02 Diagnosis: Gallbladder, laparoscopic cholecystectomy: - Chronic cholecystitis, mild. . ([facility]:mm; 05/29/2021) [facility] 05/29/2021 1315 Local . 02 Comment: There are no calculi identified within the gallbladder lumen or specimen container. Sections of the gallbladder show congestion and focal mild chronic inflammation. There is no evidence of malignancy. . ([facility]:mml; 05/29/2021) . 02 Electronically signed: . Alfredo Rincon MD, Pathologist NPI- [id number] . 01 Gross description: . Fixative: Formalin Labeled: Gallbladder and contents Specimen received: Intact Dimensions: 8.1 x 2.9 x 2.7 cm Lymph node: None Serosa: Blue-green, smooth and glistening Calculi: None within the specimen or specimen container Mucosa: Green and velvety without wolf stippling Average wall thickness: 0.3 cm Abnormalities: None A1: Gallbladder, represented ([place]; 05/28/2021) DKA/DKA 05/28/2021 1135 Local . 02 Pathologist provided ICD-10: K81.1 . 02 CPT . 202434 Specimen Comment: A courtesy copy of this report has been sent to [phone] Specimen Comment: Report sent to Specimen Comment: A duplicate report has been generated due to demographic updates. Performed at: 01 [facility] [address], [place], [place] [id number] MD Se Peña MD Phone: [phone] Performed at: 02 [facility] [address], [place] [id number] MD Alfredo Rincon MD Phone: [phone]
== END 2021-05-27 12:39 | disposition home or self-care (01) ==
LOC: SURG 07:23
PROVIDERS: ATTEND Surgery
DX: K82.8 Other specified diseases of gallbladder (principal); K81.1 Chronic cholecystitis; I10 Essential (primary) hypertension; E11.9 Type 2 diabetes mellitus without complications; J45.909 Unspecified asthma, uncomplicated; K21.9 Gastro-esophageal reflux disease without esophagitis; F17.210 Nicotine dependence, cigarettes, uncomplicated; Z79.84 Long term (current) use of oral hypoglycemic drugs; Z79.899 Other long term (current) drug therapy; Z98.890 Other specified postprocedural states
CPT/HCPCS: 47563; 74300; 81025; 82962; A4213; A4314; A4364; A4930; A6219; C1887; J0690; J0780; J1100; J1815; J1885; J2250; J2270; J2704; J2710; J3010; J3490; Q9967; A4452; A4657

== ENCOUNTER 2021-08-11 10:19 | Emergency (ER) | payer OTHER ==
[~2021-08-11] VITALS: Ht 170.2 cm; Wt 97.4 kg
[~2021-08-11 10:19] MED LIST changes: -BUPIVACAINE MPF 0.5% 30 ML VIAL. ONE; -HYDROmorphone 2 MG/ML INJ. IVP PRN; -IOHEXOL 300 MG/ML 50 ML VIAL. ONE; -IV RINGERS,LACTATED 1000ML 1,000 ML IV SCH; +OXYC-325 PO; -SURGICEL HEMOSTAT 4X8 EACH. ONE; -fentaNYL PF VIAL 100 MCG/2 ML VIAL IVP PRN
--- NOTE | 2021-08-11 11:20 | ED.ADGEN ---
Past Medical History Past Medical History: Asthma, GERD, Hypertension, Kidney Stone Past Surgical History: No Surgical History, Cholecystectomy Additional Past Surgical Histo: UMBILICAL HERNIA Smoking Status: Current Some Day Smoker Alcohol Use: None Drug Use: None General Adult EDM: Chief Complaint: FLANK PAIN HPI: HPI: Patient is a 36 year old female with right flank pain, urinary urgency and frequency for the past 2 days. Patient states she is also had numerous episodes of nausea vomiting. Patient states she has urine tract infections before I started taking [id number] Azo. Patient has a history of kidney stones but denies any history of kidney infections. Denies any diarrhea, cough, fevers, but has had chills. Review of Systems: Review of Systems: All other systems within normal limits except for as noted in the HPI Current Medications: Current Medications Medications (Trade) Dose Ordered Sig/Jeramie Start Time Stop Time Status Last Admin Dose Admin Ceftriaxone Sodium (Rocephin) 1 gm 1X ONCE 08/11/21 13:45 08/11/21 13:46 DC Info (CONTRAST GIVEN -- Rx MONITORING) 1 each PRN DAILY PRN 08/11/21 12:30 08/13/21 12:29 Iohexol (Omnipaque 300 Mg/ml) 75 ml 1X ONCE 08/11/21 12:30 08/11/21 12:31 DC 08/11/21 12:30 75 ML Ketorolac Tromethamine (Toradol 15mg Vial) 15 mg 1X ONCE 08/11/21 12:00 08/11/21 12:01 DC 08/11/21 11:55 15 MG Ondansetron HCl (Zofran) 4 mg 1X ONCE 08/11/21 14:15 08/11/21 14:16 UNV Sodium Chloride 1,000 ml @ 1,000 mls/hr 1X ONCE 08/11/21 11:30 08/11/21 12:29 DC 08/11/21 11:55 1,000 MLS/HR Allergies: Allergies: Allergies Coded Allergies Type Severity Reaction Last Updated Verified phenazopyridine Allergy Intermediate 08/11/21 Yes Physical Exam: PE: Constitutional: Well developed, well nourished, no acute distress, non-toxic appearance. [] HENT: Normocephalic, atraumatic, bilateral external ears normal, nose normal. [] Eyes: PERRLA, conjunctiva normal, no discharge. [] Neck: No rigidity, supple, no stridor. [] Cardiovascular: Regular rate and rhythm, brisk cap refill [] Lungs & Thorax: Non labored symmetric respirations, no tachypnea or respiratory distress [] Abdomen: Soft, nondistended, right abdominal tenderness without guarding or rebound Skin: Warm, dry, no erythema, no rash. [] Back: Unremarkable, right CVA tenderness Extremities: No deformities, range of motion grossly intact, no lower extremity edema [] Neurologic: Alert and oriented X 3, no focal deficits noted. [] Psychologic: Affect normal, judgement normal, mood normal. [] Current Patient Data: Labs: Laboratory Tests Test 08/11/21 10:40 08/11/21 11:40 Urine Collection Type Unknown Urine Color (Auto) Dark orange Urine Turbidity Hazy Urine pH (Auto) (<5.0-8.0) Urine Specific [place] (1.000-1.030) Urine Protein (Auto) mg/dL (Negative) Urine Glucose (Auto)(UA) mg/dL (Negative) Urine Ketones (Auto) mg/dL (Negative) Urine Blood (Auto) (Negative) Urine Nitrite (Negative) Urine Bilirubin (Auto) (Negative) Urine Urobilinogen (Auto) mg/dL (Normal) Urine Leukocyte Esterase (Auto) (Negative) Urine RBC 11-20 /HPF (0-2) Urine WBC Occ /HPF (0-4) Urine Squamous Epithelial Cells Few /LPF Urine Bacteria Few /HPF (0-FEW) Urine Hyaline Casts Occasional /HPF Urine Mucus Marked /LPF Urine Test Negative (NEG) White Blood Count 7.6 x10^3/uL (4.0-11.0) Red Blood Count 5.46 x10^6/uL (3.50-5.40) H Hemoglobin 14.7 g/dL (12.0-15.5) Hematocrit 44.9 % (36.0-47.0) Mean Corpuscular Volume 82 fL (79-100) Mean Corpuscular Hemoglobin 27 pg (25-35) Mean Corpuscular Hemoglobin Concent 33 g/dL (31-37) Red Cell Distribution Width 13.1 % (11.5-14.5) Platelet Count 419 x10^3/uL (140-400) H Neutrophils (%) (Auto) 69 % (31-73) Lymphocytes (%) (Auto) 23 % (24-48) L Monocytes (%) (Auto) 5 % (0-9) Eosinophils (%) (Auto) 3 % (0-3) Basophils (%) (Auto) 1 % (0-3) Neutrophils # (Auto) 5.2 x10^3/uL (1.8-7.7) Lymphocytes # (Auto) 1.7 x10^3/uL (1.0-4.8) Monocytes # (Auto) 0.4 x10^3/uL (0.0-1.1) Eosinophils # (Auto) 0.2 x10^3/uL (0.0-0.7) Basophils # (Auto) 0.0 x10^3/uL (0.0-0.2) Sodium Level 139 mmol/L (136-145) Potassium Level 4.4 mmol/L (3.5-5.1) Chloride Level 104 mmol/L (98-107) Carbon Dioxide Level 26 mmol/L (21-32) Anion Gap 9 (6-14) Blood Urea Nitrogen 8 mg/dL (7-20) Creatinine 1.1 mg/dL (0.6-1.0) H Estimated GFR (Cockcroft-Gault) 67.3 BUN/Creatinine Ratio 7 (6-20) Glucose Level 89 mg/dL (70-99) Calcium Level 10.1 mg/dL (8.5-10.1) Total Bilirubin 0.3 mg/dL (0.2-1.0) Aspartate Amino Transferase (AST) 8 U/L (15-37) L Alanine Aminotransferase (ALT) 12 U/L (14-59) L Alkaline Phosphatase 88 U/L (46-116) Total Protein 8.9 g/dL (6.4-8.2) H Albumin 4.5 g/dL (3.4-5.0) Albumin/Globulin Ratio 1.0 (1.0-1.7) Lipase 166 U/L (73-393) Laboratory Tests 08/11/21 11:40 Laboratory Tests 08/11/21 11:40 Vital Signs: Vital Signs Date Time Temp Pulse Resp B/P (MAP) Pulse Ox O2 Delivery O2 Flow Rate FiO2 08/11/21 10:25 99.0 95 18 151/84 (106) 98 Room Air 99.0 EKG: EKG: [] Heart Score: C/O Chest Pain: No Risk Factors: Risk Factors: DM, Current or recent (<one month) smoker, HTN, HLP, family history of CAD, obesity. Risk Scores: Score 0 - 3: 2.5% MACE over next 6 weeks - Discharge Home Score 4 - 6: 20.3% MACE over next 6 weeks - Admit for Clinical Observation Score 7 - 10: 72.7% MACE over next 6 weeks - Early Invasive Strategies Radiology/Procedures: Radiology/Procedures: [facility] [address] [place] [address] IMAGING REPORT Signed PATIENT: ARTUR PRESTON MACCOUNT: [id number] : 1985 LOCATION: ER AGE: 36 SEX: F EXAM STATUS: REG ER ORD. PHYSICIAN: GINA BELLAMY MD REASON: right flank pain PROCEDURE: CT ABD PELV W/ IV CONTRST ONLY INDICATION: Reason: right flank pain / Spl. Instructions: OMNI 300 INJ. 75 MLS / History: COMPARISON: January 2021 TECHNIQUE: Axial CT images were obtained through the abdomen and pelvis with intravenous contrast. One or more of the following individualized dose reduction techniques were utilized for this examination: 1. Automated exposure control; 2. Adjustment of the mA and/or kV according to patient size; 3. Use of iterative reconstruction technique. FINDINGS: Fat-containing left greater than right inguinal hernia. Vascular: No abdominal aortic aneurysm. Hepatobiliary: Liver is mildly low density which could be seen with fatty infiltration. Postcholecystectomy changes. There is some subtle haziness in the fat adjacent to the right ureter. Urinary bladder is partially distended. Pancreas: No peripancreatic edema. Spleen: Spleen unremarkable. Renal/Bladder: No hydronephrosis. Gastrointestinal: No periappendiceal inflammatory changes. No dilated loops of bowel to suggest obstruction. Portions of the large bowel are not very distended including on the left side of the abdomen therefore difficult assessment for wall thickening. Postoperative changes anterior abdominal wall with hernia repair. IMPRESSION: * There is some haziness of the fat adjacent to the right ureter. There is also relative decrease in enhancement of the right kidney compared to the left. Would correlate with symptoms and laboratory markers since cause such as urinary tract infection could have this appearance. Electronically signed by: Corrie Clifton MD (08/11/2021 1:30 PM) [id number] DICTATED and SIGNED BY: CORRIE CLIFTON MD DATE: 08/11/21 1318 [] Course & Med Decision Making: Course & Med Decision Making Pertinent Labs and Imaging studies reviewed. (See chart for details) [] Dragon Disclaimer: Dragon Disclaimer: This electronic medical record was generated, in whole or in part, using a voice recognition dictation system. Departure Departure Impression: Primary Impression: Pyelonephritis Disposition: HOME / SELF CARE / HOMELESS Condition: STABLE Referrals: GERSON PASTOR MD (PCP) Patient Instructions: Pyelonephritis, Adult Additional Instructions: Monitor for signs of constipation take a stool softener such as MiraLAX when taking hydrocodone. Scripts Hydrocodone Bit/Acetaminophen (HYDROCODONE-APAP 5-325 ) 1 Tab Tablet 1 TAB PO PRN Q6HRS PRN for PAIN for 3 Days, #10 TAB 0 Refills Prov: GINA BELLAMY MD 08/11/21 Ondansetron (ONDANSETRON ODT) 4 Mg Tab.rapdis 1 TAB PO PRN Q6-8HRS, #16 TAB Prov: GINA BELLAMY MD 08/11/21 Cephalexin (CEPHALEXIN) 500 Mg Tablet 2 TAB PO BID for antibiotic for 10 Days, #40 TAB Prov: GINA BELLAMY MD 08/11/21 GINA BELLAMY MD Aug 11, 2021 11:20
[2021-08-11] MEDS ORDERED: IV NORMAL SALINE 1000ML BAG 1,000 ML IV ONE (11:30)
[2021-08-11 11:41] LABS: U PREG PATIENT NEGATIVE (NEG)
[2021-08-11] MEDS ORDERED: KETOROLAC 15 MG/ML VIAL. IVP ONE (12:00)
[2021-08-11] MEDS ORDERED: ONDANSETRON PF 4 MG/2 ML VIAL. IVP ONE ×2 (12:00→14:30)
[2021-08-11 12:07] LABS: BACTERIA,URINE FEW /HPF (0-FEW); HYALINE CASTS, URINE OCCASIONAL /HPF; WBC,URINE OCC /HPF (0-4)
[2021-08-11 12:07] LABS: CALCIUM 10.1 mg/dL (8.5-10.1); CREATININE 1.1 mg/dL (0.6-1.0); GFR 67.3; POTASSIUM 4.4 mmol/L (3.5-5.1)
[2021-08-11 12:08] LABS: BASO % 1 % (0-3); EOS # 0.2 x10^3/uL (0.0-0.7); EOS % 3 % (0-3); HEMATOCRIT 44.9 % (36.0-47.0); HEMOGLOBIN 14.7 g/dL (12.0-15.5); LYMPH # 1.7 x10^3/uL (1.0-4.8); LYMPH % 23 % (24-48); MEAN CORPUSCULAR HEMOGLOBIN 27 pg (25-35); MEAN CORPUSCULAR HGB CONC 33 g/dL (31-37); MEAN CORPUSCULAR VOLUME 82 fL (79-100); MONO # 0.4 x10^3/uL (0.0-1.1); MONO % 5 % (0-9); NEUT # 5.2 x10^3/uL (1.8-7.7); NEUT % 69 % (31-73); PLATELET COUNT 419 x10^3/uL (140-400); RED BLOOD COUNT 5.46 x10^6/uL (3.50-5.40); RED CELL DISTRIBUTION WIDTH 13.1 % (11.5-14.5); WHITE BLOOD COUNT 7.6 x10^3/uL (4.0-11.0)
[2021-08-11 12:13] LABS: ALBUMIN 4.5 g/dL (3.4-5.0); TOTAL BILIRUBIN 0.3 mg/dL (0.2-1.0); TOTAL PROTEIN 8.9 g/dL (6.4-8.2)
[2021-08-11] MEDS ORDERED: CONTRAST GIVEN. MC PRN (12:30)
[2021-08-11] MEDS ORDERED: IOHEXOL 300 MG/ML 100ML VIAL. IV ONE (12:30)
--- NOTE | 2021-08-11 13:32 | RAD ---
INDICATION: Reason: right flank pain / Spl. Instructions: OMNI 300 INJ. 75 MLS / History: COMPARISON: January 2021 TECHNIQUE: Axial CT images were obtained through the abdomen and pelvis with intravenous contrast. One or more of the following individualized dose reduction techniques were utilized for this examinat ion: 1. Automated exposure control; 2. Adjustment of the mA and/or kV according to patient size; 3 . Use of iterative reconstruction technique. FINDINGS: Fat-containing left greater than right inguinal hernia. Vascular: No abdominal aortic aneurysm. Hepatobiliary: Liver is mildly low density which could be seen with fatty infiltration. Postcholecyst ectomy changes. There is some subtle haziness in the fat adjacent to the right ureter. Urinary bladde r is partially distended. Pancreas: No peripancreatic edema. Spleen: Spleen unremarkable. Renal/Bladder: No hydronephrosis. Gastrointestinal: No periappendiceal inflammatory changes. No dilated loops of bowel to suggest obstr uction. Portions of the large bowel are not very distended including on the left side of the abdomen therefore difficult assessment for wall thickening. Postoperative changes anterior abdominal wall with hernia repair. IMPRESSION: * There is some haziness of the fat adjacent to the right ureter. There is also relative decrease i n enhancement of the right kidney compared to the left. Would correlate with symptoms and laboratory markers since cause such as urinary tract infection could have this appearance. Electronically signed by: Vladimir Hummel MD (08/11/2021 1:30 PM) [id number]
[2021-08-11] MEDS ORDERED: cefTRIAXone IV Push 1 GM VIAL. IVP ONE (13:45)
[2021-08-11] MEDS ORDERED: CEPH500T PO (14:11)
[2021-08-11] MEDS ORDERED: HYDR-2761 PO (14:11)
[2021-08-11] MEDS ORDERED: ONDA4TAB12 PO (14:11)
[2021-08-11 14:14] VITALS: BP 119/69
== END 2021-08-11 14:26 | disposition home or self-care (01) ==
LOC: ER 10:19
DX: N12 Tubulo-interstitial nephritis, not specified as acute or chronic (principal); K21.9 Gastro-esophageal reflux disease without esophagitis; I10 Essential (primary) hypertension; J45.909 Unspecified asthma, uncomplicated; F17.200 Nicotine dependence, unspecified, uncomplicated; Z90.49 Acquired absence of other specified parts of digestive tract; Z87.442 Personal history of urinary calculi; Z88.8 Allergy status to other drugs, medicaments and biological substances
CPT/HCPCS: 36415; 74177; 80053; 81001; 81025; 83690; 85025; 96361; 96374; 96375; 96376; 99285; J0696; J1885; J2405; J7030; Q9967